=== PATIENT | male | born 1930 | race Caucasian/White ===

== ENCOUNTER 2017-11-26 08:52 | Inpatient (IN) ==
--- NOTE | 2017-11-26 09:45 | Emergency Department Note ---
GI Bleed HPI - General Chief complaint: Rectal Bleed Stated complaint: Rectal bleeding Time Seen by Provider: 11/26/17 09:18 Source: family Mode of arrival: wheelchair Limitations: no limitations - History of Present Illness HPI Narrative: This pleasant 87-year-old patient of [facility] comes in with 2 days of having several episodes of blood in his stools. He actually only had one episode that was fairly large today and yesterday's bowel movement smelled like blood according to his caregiver. He is on aspirin 325 daily; this is only been in this last 1 week since his fistula was "cleaned out" in his right arm.. His stools were described as muddy and jellylike with clots. He has chronic low blood pressures in the morning and dizziness. This morning here was 95/52. He has significant weakness and this has been progressive and ongoing where he cannot stand up anymore by himself. He used to use a walker and then was using a Hover[place] but this was not very helpful. He has been in [facility] for the past 6 months. Physcial therapy was discontinued because he did not think that it was being very helpful at all. REVIEW OF SYSTEMS: General: No fevers or chills or sweats. CV: No chest pains or palpitations. He does have a defibrillator but not pacer. Pulmonary: He describes chronic cough and was seen by a specialist who did not come up with any new conclusions. He denies shortness of breath. He does not use oxygen. GI: No abdominal pain or nausea or vomiting. He had some diarrhea this morning. He has some chronic constipation for which he takes as a laxative and he goes to the bathroom every other day. MSK: He has some chronic back pain. He has a history of severe to moderate scoliosis that affects some of his sitting up and down. Psych: He denies anxiety and depression. - Related Data Home Medications Medication Instructions Recorded Confirmed Allopurinol [Zyloprim] 300 mg PO DAILY 11/26/17 11/26/17 Aspirin [Lite Coat Aspirin] 325 mg PO DAILY 11/26/17 11/26/17 Carvedilol [Coreg] 3.125 mg PO QHS 11/26/17 11/26/17 Cinacalcet HCl [Sensipar] 60 mg PO .EVERY OTHER DAY 11/26/17 11/26/17 Gabapentin [Neurontin] 100 mg PO QHS 11/26/17 11/26/17 Omeprazole [PriLOSEC] 20 mg PO BIDAC 11/26/17 11/26/17 Pramipexole [Mirapex] 0.5 mg PO HS 11/26/17 11/26/17 Vit B Cmplx 3/FA/Vit C/Biotin 1 each PO DAILY 11/26/17 11/26/17 [Vol-Care Rx Tablet] traZODone HCL [Desyrel] 150 mg PO HS 11/26/17 11/26/17 Allergies Allergy/AdvReac Type Severity Reaction Status Date / Time No Known Drug Allergies Allergy Verified 11/26/17 08:57 Past Medical History - Past Medical History Medical history: Reports: hypertension, renal disease (CRF - dialysis.), other ( Defibrillator. Scarlet fever age . Scoliosis. Diverticulitis. No PUD.). Denies: CHF Surgical history ED: Reports: other (defibrillator implanted.) - Social History smoking status: Former smoker Physical Exam Limitations: no limitations General appearance: alert, in no apparent distress Head: atraumatic, normocephalic Eye: Present: EOMI ENT: mucous membranes moist Neck: Present: trachea midline. Absent: lymphadenopathy, thyromegaly Respiratory: Present: normal lung sounds bilaterally. Absent: respiratory distress, wheezes, stridor, accessory muscle use, prolonged expiratory phase Cardiovascular: Present: regular rate, normal rhythm. Absent: systolic murmur, diastolic murmur Abdominal: Present: soft. Absent: distention, tenderness, guarding, rebound, rigidity, organomegaly, mass Back: Absent: CVA tenderness (R), CVA tenderness (L), spinous process tenderness Neurological: Present: alert, oriented X3 Psychiatric: Present: normal affect, normal mood Skin: Present: warm, dry Course Course Narrative: 9:17 AM Appears fairly unremarkable and nontoxic and not in distress nor pale. 2 days of some blood in his stools on just one occasion as visible red blood, and yesterday with smell of blood; with a history of constipation and being on aspirin and chronic renal failure. Will do basic labs and give some IV fluids. 2:25 PM Repeat hemoglobin is 8.3, and 4 hours earlier was 8.9. This is down from a 10.4 that was obtained on 10/29/2017. With him having some hypotension, additional observation, possibly transfusing, dialysis likely needed in the next 24 hr especially if transfused (over-load fluid?), admission seems appropriate and prudent. Case discussed with Dr. Solitario Larson (hospitalist) who kindly accepted the care of this patient. Vital Signs Temperature 97.0 F 11/26/17 08:52 Pulse Rate 78 11/26/17 08:52 Respiratory Rate 12 11/26/17 08:52 Blood Pressure 95/52 11/26/17 08:52 Pulse Oximetry (%) 90 11/26/17 08:52 Temperature 97.2 F 11/27/17 04:00 Pulse Rate 48 L 11/27/17 04:00 Respiratory Rate 20 11/27/17 04:00 Blood Pressure 98/50 11/27/17 00:00 Pulse Oximetry (%) 95 11/27/17 04:00 GI Bleed - Lab Data Result diagrams: 11/26/17 21:05 11/26/17 09:52 Lab Results 11/26/17 11/26/17 11/26/17 Range/Units 09:52 09:52 09:52 WBC 7.3 (4.5-11.0) K/mcL RBC 2.73 L (4.50-5.90) M/mcL Hgb 8.9 L (13.5-16.5) g/dL Hct 27.4 L (41.0-55.0) % MCV 100.2 H (80.0-100.0) fL MCH 32.8 (26.0-34.0) pg MCHC 32.7 (31.0-36.0) g/dL RDW 17.5 H (11.5-14.5) % Plt Count 130 L (140-440) K/mcL MPV 8.6 (7.4-10.4) fL Gran % 82.8 H (38.0-78.0) % Lymph % (Auto) 8.2 L (15.5-49.0) % Brooks % (Auto) 7.7 (1.0-12.0) % Eos % (Auto) 1.0 (0.0-7.0) % Baso % (Auto) 0.3 (0.0-2.0) % Gran # 6.0 (1.8-8.0) K/mcL Lymph # (Auto) 0.6 L (1.5-4.8) K/mcL Brooks # (Auto) 0.6 (0.1-0.9) K/mcL Eos # (Auto) 0.1 (0.0-0.7) K/mcL Baso # (Auto) 0 (0.0-0.3) K/mcL PT 15.2 H (11.9-14.5) sec INR 1.2 H (0.9-1.1) APTT 44 H (20-37) sec Sodium 132 L (133-145) mmol/L Potassium 4.8 (3.3-5.1) mmol/L Chloride 90 L (96-108) mmol/L Carbon Dioxide 31 H (22-30) mmol/L Anion Gap 11.0 (8-16) BUN 53 H (8-23) mg/dl Creatinine 2.9 H (0.7-1.2) mg/dl GFR Calculation 19 Glucose 94 (70-105) mg/dL Calcium 9.3 (8.6-10.4) mg/dl Total Bilirubin 0.6 (0.0-1.0) mg/dL AST 24 (0-37) U/l ALT 19 (0-40) U/l Alkaline Phosphatase 167 H (39-117) U/L Total Protein 6.3 (5.9-8.4) gm/dL Albumin 3.2 (3.2-5.2) gm/dL Globulin 3.1 (2.2-3.7) gm/dL Albumin/Globulin Ratio 1.0 (1.0-2.3) 11/26/17 Range/Units 13:39 WBC 7.3 (4.5-11.0) K/mcL RBC 2.52 L (4.50-5.90) M/mcL Hgb 8.3 L (13.5-16.5) g/dL Hct 25.2 L (41.0-55.0) % MCV 100.1 H (80.0-100.0) fL MCH 33.0 (26.0-34.0) pg MCHC 33.0 (31.0-36.0) g/dL RDW 17.3 H (11.5-14.5) % Plt Count 126 L (140-440) K/mcL MPV 8.5 (7.4-10.4) fL Gran % 79.9 H (38.0-78.0) % Lymph % (Auto) 8.7 L (15.5-49.0) % Brooks % (Auto) 8.3 (1.0-12.0) % Eos % (Auto) 2.9 (0.0-7.0) % Baso % (Auto) 0.2 (0.0-2.0) % Gran # 5.8 (1.8-8.0) K/mcL Lymph # (Auto) 0.6 L (1.5-4.8) K/mcL Brooks # (Auto) 0.6 (0.1-0.9) K/mcL Eos # (Auto) 0.2 (0.0-0.7) K/mcL Baso # (Auto) 0 (0.0-0.3) K/mcL PT (11.9-14.5) sec INR (0.9-1.1) APTT (20-37) sec Sodium (133-145) mmol/L Potassium (3.3-5.1) mmol/L Chloride (96-108) mmol/L Carbon Dioxide (22-30) mmol/L Anion Gap (8-16) BUN (8-23) mg/dl Creatinine (0.7-1.2) mg/dl GFR Calculation Glucose (70-105) mg/dL Calcium (8.6-10.4) mg/dl Total Bilirubin (0.0-1.0) mg/dL AST (0-37) U/l ALT (0-40) U/l Alkaline Phosphatase (39-117) U/L Total Protein (5.9-8.4) gm/dL Albumin (3.2-5.2) gm/dL Globulin (2.2-3.7) gm/dL Albumin/Globulin Ratio (1.0-2.3) Disposition Pt seen by OTOLARYNGOLOGY PHYSICIAN/PA only: No Clinical Impression: Lower gastrointestinal hemorrhage, Hypotension, Bradycardia Disposition: Xfer As Inpt ([facility]) Condition: Fair
[2017-11-26] MEDS ORDERED: 0.9 % SODIUM CHLORIDE 1,000 ML IV ONE (09:55)
[2017-11-26 10:57] LABS: Basophils # (Auto) 0 K/mcL (0.0-0.3); Basophils % (Auto) 0.3 % (0.0-2.0); Eosinophils # (Auto) 0.1 K/mcL (0.0-0.7); Granulocytes % (Auto) 82.8 % (38.0-78.0); Lymphocytes # (Auto) 0.6 K/mcL (1.5-4.8); Lymphocytes % (Auto) 8.2 % (15.5-49.0); Mean Cell Volume 100.2 fL (80.0-100.0); Mean Corpuscular HGB Conc 32.7 g/dL (31.0-36.0); Mean Corpuscular Hemoglobin 32.8 pg (26.0-34.0); Monocytes # (Auto) 0.6 K/mcL (0.1-0.9); Monocytes % (Auto) 7.7 % (1.0-12.0); Platelet Count 130 K/mcL (140-440); RBC 2.73 M/mcL (4.50-5.90); Red Cell Distribution Width 17.5 % (11.5-14.5)
[2017-11-26 11:14] LABS: ALT/SGPT 19 U/l (0-40); Albumin 3.2 gm/dL (3.2-5.2); Alkaline Phosphatase 167 U/L (39-117); Blood Urea Nitrogen 53 mg/dl (8-23)
[2017-11-26 14:09] LABS: Basophils # (Auto) 0 K/mcL (0.0-0.3); Basophils % (Auto) 0.2 % (0.0-2.0); Eosinophils # (Auto) 0.2 K/mcL (0.0-0.7); Eosinophils % (Auto) 2.9 % (0.0-7.0); Granulocytes % (Auto) 79.9 % (38.0-78.0); Lymphocytes # (Auto) 0.6 K/mcL (1.5-4.8); Lymphocytes % (Auto) 8.7 % (15.5-49.0); Mean Cell Volume 100.1 fL (80.0-100.0); Monocytes # (Auto) 0.6 K/mcL (0.1-0.9); Monocytes % (Auto) 8.3 % (1.0-12.0); Platelet Count 126 K/mcL (140-440); RBC 2.52 M/mcL (4.50-5.90); Red Cell Distribution Width 17.3 % (11.5-14.5)
[2017-11-26] MEDS ORDERED: PANTOPRAZOLE 40 MG VIAL IV ONE (17:13)
[2017-11-26] MEDS ORDERED: ONDANSETRON 4 MG/2 ML VIAL IV PRN (17:13)
[2017-11-26] MEDS ORDERED: ACETAMINOPHEN 325 MG TABLET PO PRN (17:13)
--- NOTE | 2017-11-26 20:50 | Internal Med History&Physical ---
Medical - H&P: HPI Patient information: Note initiated : 11/26/17 at 8:50 pm Service Date, if different from initiated Date: [] Patient: Malvin Esquivel 87 y/o M admitted on 11/26/17 for Rectal bleeding. Chief Complaint: bloody stools History of present illness: The patient's pleasant 87-year-old male with history of end-stage renal disease on dialysis Fridays, hypertension, atrial and presumptive ventricular arrhythmias with AICD in place, atrial fibrillation, epistaxis while on anticoagulants or presents with bright red blood per rectum. Patient had intravascular procedure on his fistula last week. Subsequent to that he was started on an aspirin. That was done by Dr. Jacinto at [facility]. Patient did well until yesterday, when his stool smelled "bloody". It was dark , more so than usual. This morning the patient had blood in his stool passing blood and clots into the commode. Is no prior history of GI hemorrhage. He presented the emergency department, was hemoglobin was found to have decreased from 10.4-8.9. (10.4 was on October 27). He received fluids, was hemodynamically stable, recheck of hemoglobin is 8.3. Subsequently he had another frankly bloody bowel movement filling the had approximately an inch and a half with blood. Patient has chronic lightheadedness in the morning when he gets up, he does not think that's changed. He has a chronic cough which is unchanged. He denies any chest pain/tightness/squeezing. He has had no dyspnea. She had no nausea or vomiting, no hematemesis. He's had no fevers or chills. No vision changes, no headache, no strokelike symptoms. Aspirin is the only new medicine, he does not take nonsteroidals otherwise. In discussing the case with Dr. Titus, apparently the patient has had significant amounts of epistaxis in the past while on anticoagulants for A. fib or antiplatelet agents. For that reason he no longer is on any of the above. Patient says his last colonoscopy was about 5 years ago by his recall. He thinks it was done at the [facility] in [place]. He carries a diagnosis of diverticulosis. Denies any prior lower gastrointestinal hemorrhage. States any issues he had with diverticulosis October resolved when he started using Metamucil. Patient's being admitted for acute lower gastrointestinal hemorrhage. All systems: reviewed and no additional remarkable complaints except as stated Medical - H&P: PMH Medical history: End-stage renal disease on hemodialysis Wednesdays and Fridays for about the last 3 years Hypertension AICD/pacemaker (pacing spikes noted on telemetry) Diverticulosis Atrial fibrillation History of epistaxis Surgical history: AICD placement Pertinent family history: No significant history of gastrointestinal illness Social history: The patient's former smoker. He does not drink alcohol. Medical - H&P: Meds Home Medications Medication Instructions Recorded Confirmed Type Allopurinol [Zyloprim] 300 mg PO DAILY 11/26/17 11/26/17 History Aspirin [Lite Coat Aspirin] 325 mg PO DAILY 11/26/17 11/26/17 History Carvedilol [Coreg] 3.125 mg PO QHS 11/26/17 11/26/17 History Cinacalcet HCl [Sensipar] 60 mg PO .EVERY OTHER DAY 11/26/17 11/26/17 History Gabapentin [Neurontin] 100 mg PO QHS 11/26/17 11/26/17 History Omeprazole [PriLOSEC] 20 mg PO BIDAC 11/26/17 11/26/17 History Pramipexole [Mirapex] 0.5 mg PO HS 11/26/17 11/26/17 History Vit B Cmplx 3/FA/Vit C/Biotin 1 each PO DAILY 11/26/17 11/26/17 History [Vol-Care Rx Tablet] traZODone HCL [Desyrel] 150 mg PO HS 11/26/17 11/26/17 History Allergies Allergy/AdvReac Type Severity Reaction Status Date / Time No Known Drug Allergies Allergy Verified 11/26/17 08:57 Medical - H&P: Exam - Constitutional Vitals: Temp Pulse Resp BP Pulse Ox 97.0 F 59 L 21 112/61 100 11/26/17 17:20 11/26/17 17:20 11/26/17 17:20 11/26/17 17:20 11/26/17 17:20 Exam: General: Alert, in no acute distress, appears his stated age HEENT: Normocephalic. Pupils are equally round and reactive to light. Sclera are anicteric. No conjunctival injection. Oropharynx is with moist mucous membranes, no lip or gum lesions. Tongue is midline. Neck: Supple, no meningismus. No thyromegaly. Chest: Clear to auscultation bilaterally with no rales or wheezes. No accessory muscle use. Cardiovascular: Irregularly irregular with a murmur across the precordium. No gallop or rub. Carotid pulses are 2+ without bruit. There is no lower extremity edema. JVP is normal. Abdomen: Soft, nontender without guarding or rebound. Active, normal bowel sounds. No hepatosplenomegaly. Skin: Warm, dry. No rash. Skin turgor is decreased Musculoskeletal: No joint erythema or tenderness. Normal range of motion in the upper and lower extremities. Strength 5/5 in upper and lower extremities. Digits without cyanosis or clubbing. Neuro: Alert, oriented X3. Cranial nerves II through XII grossly intact. Sensation intact to light touch. DTR 2+ in the upper and lower extremity. Psychiatric: Affect and orientation are normal. Good insight. Medical - H&P: Reslt - Labs CBC & Chem 7: 11/26/17 21:05 11/26/17 09:52 Labs: Short CBC 11/26/17 11/26/17 11/26/17 Range/Units 09:52 13:39 17:20 WBC 7.3 7.3 (4.5-11.0) K/mcL Hgb 8.9 L 8.3 L 8.3 L (13.5-16.5) g/dL Hct 27.4 L 25.2 L 25.4 L (41.0-55.0) % Plt Count 130 L 126 L (140-440) K/mcL [facility] 11/26/17 09:52 Sodium 132 L Potassium 4.8 Chloride 90 L Carbon Dioxide 31 H BUN 53 H Creatinine 2.9 H Glucose 94 Calcium 9.3 Liver Function 11/26/17 Range/Units 09:52 Total Bilirubin 0.6 (0.0-1.0) mg/dL AST 24 (0-37) U/l ALT 19 (0-40) U/l Alkaline Phosphatase 167 H (39-117) U/L Albumin 3.2 (3.2-5.2) gm/dL - EKG Data -: EKG Reviewed by Myself (atrial fibrillation and a rate of 56 with no acute injury) Medical - H&P: A/P (1) Lower gastrointestinal hemorrhage Current visit: Yes Status: Acute (2) Anemia associated with acute blood loss Current visit: Yes Status: Acute (3) End stage renal disease Current visit: Yes Status: Chronic (4) Atrial fibrillation with slow ventricular response Current visit: Yes Status: Chronic - Narrative A/P Narrative: 87-year-old male with end-stage renal disease on dialysis with a history of epistaxis to anticoagulants and antiplatelet agents presents with lower gastrointestinal hemorrhage. Lower GI bleed. Acute with acute blood loss anemia. After arriving on the floor, he had further blood loss and drop in his hemoglobin. Given his history of epistaxis on antiplatelet and anticoagulant agents, concern for possible AVM source of bleeding. Diverticular bleed remains a possibility too, less likely tumor if he had an unremarkable colonoscopy 5 years ago. Recent aspirin use could have contributed. He remains hemodynamically stable. Plan: Inpatient admission to telemetry Trend hemoglobin Type and cross, hold for units Transfuse for ongoing hemorrhage GI consultation, discussed with Dr. Caro If ongoing hemorrhage, may need prep as able to investigate source If bleeding is self-limited, will need a full prep and endoscopy. End-stage renal disease. At risk for volume overload if her recent heaves multiple units of packed red cells. Currently no evidence of volume overload. He normally would've gotten dialysis today, missed that secondary to GI hemorrhage. Discussed with Dr. Titus, who will arrange dialysis for tomorrow. Plan: Hemodialysis tomorrow. Atrial fibrillation with slow ventricular response. Patient has AICD, denies pacemaker that, though pacemaker spikes are visible on telemetry. He does mount a brisker response at times. Plan: Continue to monitor on telemetry. Avoid antiplatelet and anticoagulant agents Acute blood loss anemia secondary to acute GI hemorrhage. Plan: As above Prophylaxis: SCDs. Pharmacologic prophylaxis is contraindicated due to acute gastrointestinal hemorrhage. CODE STATUS, discussed with the patient. He is full code. Medical - H&P: Qual - VTE Deep Vein Thrombosis/Pulmonary Embolism Present on Admission: No
[2017-11-26] MEDS ORDERED: 0.9 % SODIUM CHLORIDE 250 ML IV SCH (22:00)
[2017-11-26] MEDS: PRAMIPEXOLE 0.25 MG TABLET PO SCH (23:41)
[2017-11-27] MEDS ORDERED: PEG 3350/NA SULF,BICARB,CL/KCL 4,000 ML ORAL.SOL PO ONE (05:42)
[2017-11-27] MEDS: PANTOPRAZOLE 40 MG VIAL IV SCH (08:45)
[2017-11-27] MEDS: ALLOPURINOL 300 MG TABLET PO SCH (08:57)
--- NOTE | 2017-11-27 09:36 | Internal Med Progress Note ---
Medical - PN: Subj Patient information: Note initiated : 11/27/17 at 9:28 am Service Date, if different from initiated Date: [] Patient: Malvin Esquivel 87 y/o M admitted on 11/26/17 for Rectal bleeding. Chief Complaint: f/u GI bleed Interval history: 2/2-patient presents after bloody stools at home, in the setting of recently started aspirin or dialysis fistula interventional procedure. Was hemodynamically stable in the ED, subsequently had bloody bowel movement the ED. Admitted for further evaluation. 2/3-last evening had further bloody bowel movement on the bedpan. Received 2 units of packed cells overnight. Tolerated that well, no dyspnea. Follow-up labs are pending. Now taking bowel prep. - Constitutional Vitals: Vital Signs Temp Pulse Resp BP Pulse Ox 97.2 F 48 L 20 98/50 95 11/27/17 04:00 11/27/17 04:00 11/27/17 04:00 11/27/17 00:00 11/27/17 04:00 Period Temp Pulse Resp BP Sys/Tolbert Pulse Ox Last 24 Hr 97.0 F-98.2 F 47-65 16-21 96-129/44-72 95-100 Intake and Output 11/26/17 11/27/17 11/27/17 21:59 05:59 13:59 Intake Total 325 / 325 Output Total 600 / 600 Balance -275 / -275 Weight 148 lb 8 oz Intake & Output: Intake & Output 11/26/17 11/27/17 11/27/17 21:59 05:59 13:59 Intake Total 325 / 325 Output Total 600 / 600 Balance -275 / -275 Weight 148 lb 8 oz Intake: Blood Product 325 / 325 Output: Urine/Stool Mix 600 / 600 Exam: General: Laying in bed, comfortable Cardiovascular: Irregular regular, unchanged precordial murmur. Trace lower extremity edema. Chest: Clear, no rales Abdomen: Soft, active bowel sounds, nontender Neuro: Alert, oriented, generalized weakness. Medical - PN: Obj Da - Labs CBC & Chem 7: 11/26/17 21:05 11/26/17 09:52 Labs: Abnormal Lab Results 11/26/17 11/26/17 11/26/17 21:05 17:20 13:39 RBC 2.52 L Hgb 7.5 L 8.3 L 8.3 L Hct 22.3 L 25.4 L 25.2 L MCV 100.1 H RDW 17.3 H Plt Count 126 L Gran % 79.9 H Lymph % (Auto) 8.7 L Lymph # (Auto) 0.6 L PT INR APTT Sodium Chloride Carbon Dioxide BUN Creatinine Alkaline Phosphatase 11/26/17 11/26/17 11/26/17 09:52 09:52 09:52 RBC 2.73 L Hgb 8.9 L Hct 27.4 L MCV 100.2 H RDW 17.5 H Plt Count 130 L Gran % 82.8 H Lymph % (Auto) 8.2 L Lymph # (Auto) 0.6 L PT 15.2 H INR 1.2 H APTT 44 H Sodium 132 L Chloride 90 L Carbon Dioxide 31 H BUN 53 H Creatinine 2.9 H Alkaline Phosphatase 167 H post transfusion laboratories are pending. Meds: Medications Acetaminophen (Tylenol) 650 mg PO Q6HP PRN PRN Reason: PAIN/FEVER > 101 Allopurinol (Zylopriim) 300 mg PO DAILY [facility] Last Admin: 11/27/17 08:57 Dose: 300 mg Carvedilol (Coreg) 3.125 mg PO QHS [facility] Gabapentin (Neurontin) 100 mg PO QHS [facility] Sodium Chloride (Sodium Chloride 0.9%) 250 mls @ 20 mls/hr IV .[id number] [facility] Stop: 11/27/17 10:29 Last Admin: 11/27/17 02:11 Dose: 20 mls/hr Sodium Chloride (Sodium Chloride 0.9%) 250 mls @ 20 mls/hr IV .[id number] [facility] Vasopressin 20 unit/ Dextrose 100 mls @ 12 mls/hr IV Q8H [facility]; 0.04 UNIT/MIN PRN Reason: Protocol Ondansetron HCl (Zofran) 4 mg IV Q4HP PRN PRN Reason: Nausea And Vomiting Pantoprazole [facility] Last Admin: 11/27/17 08:45 Dose: 40 mg Pramipexole Dihydrochloride (Mirapex) 0.5 mg PO [facility] Last Admin: 11/26/17 23:41 Dose: Not Given Trazodone HCl (Desyrel) 150 mg PO [facility] Medical - PN: A/P - Time Spent With Patient Total time spent is greater than 50% in coordination of care (as documented) at patient's floor/unit and/or counseling patient: (1) Lower gastrointestinal hemorrhage Status: Acute Current Visit: Yes (2) Anemia associated with acute blood loss Status: Acute Current Visit: Yes (3) End stage renal disease Status: Chronic Current Visit: Yes (4) Atrial fibrillation with slow ventricular response Status: Chronic Current Visit: Yes - Narrative A/P Narrative: 87-year-old male with end-stage renal disease on dialysis with a history of epistaxis to anticoagulants and antiplatelet agents presents with lower gastrointestinal hemorrhage. Lower GI bleed. Acute with acute blood loss anemia. Further bloody BM last evening, now s/p 2 units PRBC. Taking bowel prep, to go to endo suite this afternoon. Concern for possible AVM source of bleeding. Diverticular bleed remains a possibility too, less likely tumor if he had an unremarkable colonoscopy 5 years ago. Recent aspirin use could have contributed. Hemodynamics are stable. Plan: Continue to trend Hb, transfuse PRN, GI Consult-->prepping for endo. End-stage renal disease. Tolerated 2 units PRBC without volume overload. Missed HD Wednesday, Dr. Titus consulted for inpatient HD. Plan: Hemodialysis per nephro. Atrial fibrillation with slow ventricular response. Stable. Patient has AICD with back up pacing noted on telemetry. Plan: Continue to monitor on telemetry. Avoid antiplatelet and anticoagulant agents Acute blood loss anemia secondary to acute GI hemorrhage. Plan: As above Medical - PN: Qual - VTE Deep Vein Thrombosis/Pulmonary Embolism Present on Admission: No
[2017-11-27 10:40] LABS: Basophils # (Auto) 0 K/mcL (0.0-0.3); Basophils % (Auto) 0.6 % (0.0-2.0); Eosinophils # (Auto) 0.2 K/mcL (0.0-0.7); Eosinophils % (Auto) 3.4 % (0.0-7.0); Lymphocytes # (Auto) 0.7 K/mcL (1.5-4.8); Mean Cell Volume 96.4 fL (80.0-100.0); Mean Corpuscular HGB Conc 33.4 g/dL (31.0-36.0); Mean Corpuscular Hemoglobin 32.2 pg (26.0-34.0); Monocytes # (Auto) 0.5 K/mcL (0.1-0.9); Platelet Count 115 K/mcL (140-440); RBC 2.89 M/mcL (4.50-5.90); Red Cell Distribution Width 17.8 % (11.5-14.5)
[2017-11-27 11:08] LABS: ALT/SGPT 18 U/l (0-40); Albumin 3.2 gm/dL (3.2-5.2); Albumin/Globulin Ratio 1.1 (1.0-2.3); Alkaline Phosphatase 159 U/L (39-117); Bilirubin,Direct 0.4 mg/dL (0.0-0.3); Blood Urea Nitrogen 76 mg/dl (8-23); Gamma Glutamyl Transpeptidase 57 U/L (8-61); Uric Acid 3.3 mg/dL (2.5-8.0)
[2017-11-27] MEDS ORDERED: MIDAZOLAM 2 MG/2 ML VIAL IV SCH (14:30)
[2017-11-27] MEDS ORDERED: PROPOFOL 200 MG/20 ML VIAL IV SCH (14:30)
[2017-11-27] MEDS ORDERED: PROPOFOL 0 ML IV ONE (14:40)
[2017-11-27] MEDS ORDERED: PROPOFOL 20 ML IV ONE (14:40)
[2017-11-27] MEDS ORDERED: MIDAZOLAM 2 MG/2 ML VIAL ONE (14:40)
[2017-11-27] MEDS: 0.9 % SODIUM CHLORIDE 250 ML IV SCH ×2 (15:20→21:31)
[2017-11-27] MEDS: VASOPRESSIN 20 UNIT in DEXTROSE 5% IN WATER 99 ML IV SCH ×2 (15:20→17:24)
[2017-11-27] MEDS ORDERED: EPINEPHrine 1 MG/ML AMPUL IJ ONE (15:40)
[2017-11-27] MEDS ORDERED: ETHANOLAMINE OLEATE 5% 2 ML AMP IJ ONE (15:41)
[2017-11-27] MEDS: CARVEDILOL 3.125 MG TABLET PO SCH (21:26)
[2017-11-27] MEDS: GABAPENTIN 100 MG CAPSULE PO SCH (21:32)
[2017-11-27] MEDS: traZODone HCL 150 MG TABLET PO SCH (21:32)
[2017-11-27] MEDS: PRAMIPEXOLE 0.25 MG TABLET PO SCH (21:32)
[2017-11-28] MEDS: VASOPRESSIN 20 UNIT in DEXTROSE 5% IN WATER 99 ML IV SCH (03:11)
[2017-11-28] MEDS: PANTOPRAZOLE 40 MG VIAL IV SCH (06:50)
[2017-11-28 07:10] LABS: ALT/SGPT 20 U/l (0-40); Albumin 3.1 gm/dL (3.2-5.2); Albumin/Globulin Ratio 1.1 (1.0-2.3); Alkaline Phosphatase 165 U/L (39-117); Bilirubin,Direct 0.3 mg/dL (0.0-0.3); Blood Urea Nitrogen 28 mg/dl (8-23); Gamma Glutamyl Transpeptidase 58 U/L (8-61); Uric Acid 2.1 mg/dL (2.5-8.0)
[2017-11-28] MEDS ORDERED: VASOPRESSIN 20 UNIT in DEXTROSE 5% IN WATER 99 ML IV PRN (07:30)
[2017-11-28] MEDS: ALLOPURINOL 300 MG TABLET PO SCH (08:38)
[2017-11-28] MEDS: 0.9 % SODIUM CHLORIDE 250 ML IV SCH ×2 (12:06→23:47)
--- NOTE | 2017-11-28 17:44 | Nephrology Progress Note ---
Subjective Patient information: Note initiated : 11/28/17 at 5:42 pm Service Date, if different from initiated Date: [] Patient: Malvin Esquivel 87 y/o M admitted on 11/26/17 for Rectal bleeding. Chief Complaint: Lower GI bleed Objective - Vital Signs Vital signs: Vital Signs Temp Pulse Pulse Resp BP BP Pulse Ox 11/28/17 16:00 99.4 F H 80 16 125/62 94 11/28/17 11:58 99.0 F H 18 100/52 95 11/28/17 06:25 99.0 F H 20 107/74 93 11/28/17 04:00 97.2 F 67 18 95 11/28/17 00:00 97.2 F 60 18 94/56 96 11/27/17 20:10 98.6 F 80 113/66 11/27/17 20:00 95 11/27/17 19:54 93 H 126/82 11/27/17 19:39 81 119/65 11/27/17 19:16 81 117/68 11/27/17 18:50 59 L 116/66 11/27/17 18:39 76 102/60 11/27/17 17:49 80 120/65 Intake and Output 11/28/17 11/28/17 11/28/17 05:59 13:59 21:59 Intake Total 1020 / 1020 300 / 300 Output Total 200 / 200 Balance -200 / -200 1020 / 1020 300 / 300 Intake: Oral 1020 / 1020 300 / 300 Output: Void Amount 0 / 0 Stool 200 / 200 Other: Meal Breakfast Lunch Percent of Meal Consumed 100% 100% Feeding Ability Independent Independent # Bowel Movements 1 Intake & Output: Intake & Output 11/28/17 11/28/17 11/28/17 05:59 13:59 21:59 Intake Total 1020 / 1020 300 / 300 Output Total 200 / 200 Balance -200 / -200 1020 / 1020 300 / 300 Intake: Oral 1020 / 1020 300 / 300 Output: Void Amount 0 / 0 Stool 200 / 200 Other: Meal Breakfast Lunch Percent of Meal Consumed 100% 100% Feeding Ability Independent Independent # Bowel Movements 1 - General Appearance General appearance: appears started age, cachectic EENT: ATNC Neck: no JVD Respiratory: no kyphosis Cardiology: mid-systolic murmur Gastrointestinal: normoactive bowel sounds Neurologic: no focal deficit - Lab 11/28/17 03:50 11/28/17 03:28 Most recent lab results Calcium 8.8 mg/dl (8.6-10.4) 11/28/17 03:28 Phosphorus 2.7 mg/dL (2.7-4.5) 11/28/17 03:28 Magnesium 1.9 mg/dL (1.6-2.5) 11/28/17 03:28 Assessment and Plan (1) End stage renal disease Status: Chronic Comment: Had dialysis yesterday without any problems without heparin. GI bleed, no new episodes.
--- NOTE | 2017-11-28 18:28 | Internal Med Progress Note ---
Medical - PN: Subj Patient information: Note initiated : 11/28/17 at 6:25 pm Service Date, if different from initiated Date: [] Patient: Malvin Esquivel 87 y/o M admitted on 11/26/17 for Rectal bleeding. Chief Complaint: f/u GI Bleed Interval history: 2/-patient presents after bloody stools at home, in the setting of recently started aspirin or dialysis fistula interventional procedure. Was hemodynamically stable in the ED, subsequently had bloody bowel movement the ED. Admitted for further evaluation. 3-last evening had further bloody bowel movement on the bedpan. Received 2 units of packed cells overnight. Tolerated that well, no dyspnea. Follow-up labs are pending. Now taking bowel prep. 11/28-underwent colonoscopy yesterday, tolerated procedure well. All diverticula , none with fresh blood. 4-5 mm polyp was snared. AVM in the cecum was not bleeding, was ablated. Patient feels well this morning. Tolerating diet. Received dialysis yesterday evening without problems. Should be stable for discharge tomorrow if no further bloody bowel movements. - Constitutional Vitals: Vital Signs Temp Pulse Resp BP Pulse Ox 99.4 F H 80 16 125/62 94 11/28/17 16:00 11/28/17 16:00 11/28/17 16:00 11/28/17 16:00 11/28/17 16:00 Period Temp Pulse Resp BP Sys/Tolbert Pulse Ox Last 24 Hr 97.2 F-99.4 F 59-93 16-20 94-126/52-82 93-96 Intake and Output 11/28/17 11/28/17 11/28/17 05:59 13:59 21:59 Intake Total 1020 / 1020 300 / 300 Output Total 200 / 200 Balance -200 / -200 1020 / 1020 300 / 300 Intake & Output: Intake & Output 11/28/17 11/28/17 11/28/17 05:59 13:59 21:59 Intake Total 1020 / 1020 300 / 300 Output Total 200 / 200 Balance -200 / -200 1020 / 1020 300 / 300 Intake: Oral 1020 / 1020 300 / 300 Output: Void Amount 0 / 0 Stool 200 / 200 Other: Meal Breakfast Lunch Percent of Meal Consumed 100% 100% Feeding Ability Independent Independent # Bowel Movements 1 Exam: General: Sitting up in bed, eating breakfast, no distress Chest: Clear, no rales Current vascular: Bradycardia, irregularly irregular, no edema Abdomen: Soft, nontender Neuro: Alert, oriented, generally weak. Medical - PN: Obj Da - Labs CBC & Chem 7: 11/28/17 03:50 11/28/17 03:28 Labs: Abnormal Lab Results 11/28/17 11/28/17 11/28/17 03:50 03:28 03:28 RBC Hgb 9.4 L Hct 28.4 L MCV RDW Plt Count Gran % Lymph % (Auto) Lymph # (Auto) PT INR APTT Sodium Potassium Chloride Carbon Dioxide BUN 28 H Creatinine 2.0 H Glucose 66 L Uric Acid 2.1 L Direct Bilirubin Alkaline Phosphatase 165 H Albumin 3.1 L 11/27/17 11/27/17 11/27/17 13:17 10:15 10:15 RBC 2.89 L Hgb 9.6 L 9.3 L Hct 28.0 L 27.9 L MCV RDW 17.8 H Plt Count 115 L Gran % Lymph % (Auto) 13.0 L Lymph # (Auto) 0.7 L PT INR APTT Sodium Potassium 5.5 H Chloride 91 L Carbon Dioxide BUN 76 H Creatinine 3.1 H Glucose Uric Acid Direct Bilirubin 0.4 H Alkaline Phosphatase 159 H Albumin 11/26/17 11/26/17 11/26/17 21:05 17:20 13:39 RBC 2.52 L Hgb 7.5 L 8.3 L 8.3 L Hct 22.3 L 25.4 L 25.2 L MCV 100.1 H RDW 17.3 H Plt Count 126 L Gran % 79.9 H Lymph % (Auto) 8.7 L Lymph # (Auto) 0.6 L PT INR APTT Sodium Potassium Chloride Carbon Dioxide BUN Creatinine Glucose Uric Acid Direct Bilirubin Alkaline Phosphatase Albumin 11/26/17 11/26/17 11/26/17 09:52 09:52 09:52 RBC 2.73 L Hgb 8.9 L Hct 27.4 L MCV 100.2 H RDW 17.5 H Plt Count 130 L Gran % 82.8 H Lymph % (Auto) 8.2 L Lymph # (Auto) 0.6 L PT 15.2 H INR 1.2 H APTT 44 H Sodium 132 L Potassium Chloride 90 L Carbon Dioxide 31 H BUN 53 H Creatinine 2.9 H Glucose Uric Acid Direct Bilirubin Alkaline Phosphatase 167 H Albumin Meds: Medications Acetaminophen (Tylenol) 650 mg PO Q6HP PRN PRN Reason: PAIN/FEVER > 101 Allopurinol (Zylopriim) 300 mg PO DAILY [facility] Last Admin: 11/28/17 08:38 Dose: 300 mg Carvedilol (Coreg) 3.125 mg PO QHS [facility] Last Admin: 11/27/17 21:26 Dose: Not Given Gabapentin (Neurontin) 100 mg PO QHS [facility] Last Admin: 11/27/17 21:32 Dose: 100 mg Sodium Chloride (Sodium Chloride 0.9%) 250 mls @ 20 mls/hr IV .[id number] [facility] Last Admin: 11/28/17 12:06 Dose: Not Given Vasopressin 20 unit/ Dextrose 100 mls @ 12 mls/hr IV Q8HP PRN; Protocol; 0.04 UNIT/MIN PRN Reason: keep SBP > 100 during dialysis Ondansetron HCl (Zofran) 4 mg IV Q4HP PRN PRN Reason: Nausea And Vomiting Pantoprazole Sodium (Protonix) 40 mg IV QAMAC [facility] Last Admin: 11/28/17 06:50 Dose: 40 mg Pramipexole Dihydrochloride (Mirapex) 0.5 mg PO [facility] Last Admin: 11/27/17 21:32 Dose: 0.5 mg Trazodone HCl (Desyrel) 150 mg PO [facility] Last Admin: 11/27/17 21:32 Dose: 150 mg Medical - PN: A/P - Time Spent With Patient Total time spent is greater than 50% in coordination of care (as documented) at patient's floor/unit and/or counseling patient: Greater than 35 minutes (1) Lower gastrointestinal hemorrhage Status: Acute Current Visit: Yes (2) Anemia associated with acute blood loss Status: Acute Current Visit: Yes (3) End stage renal disease Problem details: Had dialysis yesterday without any problems without heparin. GI bleed, no new episodes. Status: Chronic Current Visit: Yes (4) Atrial fibrillation with slow ventricular response Status: Chronic Current Visit: Yes - Narrative A/P Narrative: 87-year-old male with end-stage renal disease on dialysis with a history of epistaxis to anticoagulants and antiplatelet agents presents with lower gastrointestinal hemorrhage. Lower GI bleed. Acute with acute blood loss anemia. Possibly from diverticula , though no fresh blood in tics noted on colo. No further bloody BM''s after proceudre, Hb stable overnight. Will need to avoid antiplatelet and anticoagulant agents. Plan: Monitor overnight, follow Hb, likely home tomorrow. End-stage renal disease. S/P dialysis yesterday. Next due tomorrow, likely can get after discharge. Dr. Titus consulted for inpatient HD. Plan: Hemodialysis per nephro. Atrial fibrillation with slow ventricular response. Stable. Patient has AICD with back up pacing noted on telemetry. Plan: Continue to monitor on telemetry. Avoid antiplatelet and anticoagulant agents Acute blood loss anemia secondary to acute GI hemorrhage. Plan: As above Medical - PN: Qual - VTE Deep Vein Thrombosis/Pulmonary Embolism Present on Admission: No
[2017-11-28] MEDS: PRAMIPEXOLE 0.25 MG TABLET PO SCH (20:30)
[2017-11-28] MEDS: CARVEDILOL 3.125 MG TABLET PO SCH (20:30)
[2017-11-28] MEDS: traZODone HCL 150 MG TABLET PO SCH (20:30)
[2017-11-28] MEDS: GABAPENTIN 100 MG CAPSULE PO SCH (20:32)
[2017-11-29 05:29] LABS: Basophils # (Auto) 0 K/mcL (0.0-0.3); Basophils % (Auto) 0.3 % (0.0-2.0); Eosinophils # (Auto) 0.1 K/mcL (0.0-0.7); Eosinophils % (Auto) 1.6 % (0.0-7.0); Lymphocytes # (Auto) 0.5 K/mcL (1.5-4.8); Lymphocytes % (Auto) 9.3 % (15.5-49.0); Mean Corpuscular HGB Conc 33.1 g/dL (31.0-36.0); Mean Corpuscular Hemoglobin 32.1 pg (26.0-34.0); Monocytes # (Auto) 0.6 K/mcL (0.1-0.9); Monocytes % (Auto) 9.8 % (1.0-12.0); Platelet Count 110 K/mcL (140-440); RBC 2.71 M/mcL (4.50-5.90); Red Cell Distribution Width 17.9 % (11.5-14.5)
[2017-11-29 05:56] LABS: ALT/SGPT 18 U/l (0-40); Alkaline Phosphatase 163 U/L (39-117); Bilirubin,Direct 0.2 mg/dL (0.0-0.3); Blood Urea Nitrogen 37 mg/dl (8-23); Gamma Glutamyl Transpeptidase 57 U/L (8-61); Uric Acid 3.1 mg/dL (2.5-8.0)
[2017-11-29] MEDS: PANTOPRAZOLE 40 MG VIAL IV SCH (07:13)
--- NOTE | 2017-11-29 08:19 | Discharge Summary ---
Medical - DS: Prov Patient information: Note initiated : 11/29/17 at 8:16 am Service Date, if different from initiated Date: [] Patient: Malvin Esquivel 87 y/o M admitted on 11/26/17 for Rectal bleeding. Date of admission: 11/26/17 17:10 Discharge date: 11/29/17 Primary care physician: Junito Titus Admitting clinician: Rossy Ayala Consults: 11/26/17 14:42 Consult to Physician [CONS] Stat Comment: Consulting Provider: Rossy Ayala Reason For Exam: Physician to Consult 11/26/17 17:13 Consult to Physician [CONS] Routine Comment: Consulting Provider: Junito Titus Reason For Exam: Physician to Consult 11/26/17 17:58 Consult to Physician [CONS] Routine Comment: Consulting Provider: Rony Caro Reason For Exam: Physician to Consult Discharging clinician: Rossy Ayala Medical - DS: Meds - Discharge Medications Prescriptions: Psyllium Husk/Aspartame [Metamucil Fiber Singles Packet] 3.4 gm PO DAILY #30 powd.pack Sennosides [Senna] 8.6 mg PO HS #30 tab Active and Home Medications: Home Medications Allopurinol [Zyloprim] 300 mg PO DAILY 11/26/17 [History Confirmed 11/26/17 Last Taken 11/26/17 08:00] Carvedilol [Coreg] 3.125 mg PO QHS 11/26/17 [History Confirmed 11/26/17 Last Taken 11/25/17 20:00] Cinacalcet HCl [Sensipar] 60 mg PO .EVERY OTHER DAY 11/26/17 [History Confirmed 11/26/17 Last Taken Unknown] Gabapentin [Neurontin] 100 mg PO QHS 11/26/17 [History Confirmed 11/26/17 Last Taken 11/25/17 20:00] Omeprazole [Prilosec] 20 mg PO BIDAC 11/26/17 [History Confirmed 11/26/17 Last Taken 11/26/17 08:00] Pramipexole [Mirapex] 0.5 mg PO HS 11/26/17 [History Confirmed 11/26/17 Last Taken 11/25/17 20:00] Vit B Cmplx 3/FA/Vit C/Biotin [Vol-Care Rx Tablet] 1 each PO DAILY 11/26/17 [ History Confirmed 11/26/17 Last Taken 11/26/17 08:00] traZODone HCL [Desyrel] 150 mg PO HS 11/26/17 [History Confirmed 11/26/17 Last Taken Unknown] Psyllium Husk/Aspartame [Metamucil Fiber Singles Packet] 3.4 gm PO DAILY #30 powd.pack 11/29/17 [Rx Last Taken Unknown] Sennosides [Senna] 8.6 mg PO HS #30 tab 11/29/17 [Rx Last Taken Unknown] Medical - DS: Hosp Hospital course: 11/26-patient presents after bloody stools at home, in the setting of recently started aspirin or dialysis fistula interventional procedure. Was hemodynamically stable in the ED, subsequently had bloody bowel movement the ED. Admitted for further evaluation. 11/27-last evening had further bloody bowel movement on the bedpan. Received 2 units of packed cells overnight. Tolerated that well, no dyspnea. Follow-up labs are pending. Now taking bowel prep. 11/28-underwent colonoscopy yesterday, tolerated procedure well. All diverticula , none with fresh blood. 4-5 mm polyp was snared. AVM in the cecum was not bleeding, was ablated. Patient feels well this morning. Tolerating diet. Received dialysis yesterday evening without problems. Should be stable for discharge tomorrow if no further bloody bowel movements. 11/29-did well overnight, no further bowel movements. He relates that he does strain to pass stool at times. Does use Metamucil in the past. Have prescribed that as well as senna for him at the time of discharge. In summary: 87-year-old male with a history of epistaxis with anticoagulants and antiplatelet agents, presents with lower GI bleed after starting aspirin. Colonoscopy revealed multiple diverticula, though no fresh blood. There is also an AVM in the cecum that was ablated. Patient tolerated the procedure well , had no further bloody bowel movements after the procedure and his hemoglobin was stable. He will be discharged to outpatient dialysis, then to return to his living facility. Discharge diagnosis: Lower GI bleed, likely diverticular source Secondary discharge diagnosis: End stage renal disease - Time Spent with Patient Total time spent providing and/or coordinating discharge services: Less than 30 minutes Medical - DS: Exam - Constitutional Vitals: Vital Signs Temp Pulse Resp BP Pulse Ox 11/29/17 07:32 98 11/29/17 03:49 98.0 F 64 18 118/66 94 11/29/17 00:00 98.4 F 74 16 126/78 96 11/28/17 19:12 98.0 F 82 18 117/60 94 11/28/17 16:00 99.4 F H 80 16 125/62 94 11/28/17 11:58 99.0 F H 18 100/52 95 Intake and Output 11/28/17 11/29/17 11/29/17 21:59 05:59 13:59 Intake Total 300 / 300 180 / 180 Output Total 0 / 0 Balance 300 / 300 180 / 180 Intake: Oral 300 / 300 180 / 180 Output: Void Amount 0 / 0 Other: Meal Lunch Percent of Meal Consumed 100% Feeding Ability Independent # Bowel Movements 0 Weight 148 lb 9 oz General appearance: no acute distress - Eye Eye exam: Present: PERRL - ENT ENT exam: Present: mucous membranes moist, normal exam - Respiratory Respiratory exam: Present: CTAB. Absent: accessory muscle use - Cardiovascular Cardiovascular exam: Present: irregular rhythm, systolic murmur - GI/Abdominal GI/Abdominal exam: Present: normal bowel sounds, soft. Absent: tenderness - Neurological Exam Neurological exam: Present: alert, oriented X3 Medical - DS: Data Procedures and tests throughout hospitalization: Colonoscopy by Dr. Rony Lin on 11/27: Multiple diverticula, none with fresh blood. 4-5 mm polyp was snared. AVM in the cecum was not bleeding, was ablated. Labs on day of discharge: Laboratory Last Values WBC 5.8 K/mcL (4.5-11.0) 11/29/17 03:30 RBC 2.71 M/mcL (4.50-5.90) L 11/29/17 03:30 Hgb 8.7 g/dL (13.5-16.5) L 11/29/17 03:30 Hct 26.3 % (41.0-55.0) L 11/29/17 03:30 MCV 97.0 fL (80.0-100.0) 11/29/17 03:30 MCH 32.1 pg (26.0-34.0) 11/29/17 03:30 MCHC 33.1 g/dL (31.0-36.0) 11/29/17 03:30 RDW 17.9 % (11.5-14.5) H 11/29/17 03:30 Plt Count 110 K/mcL (140-440) L 11/29/17 03:30 MPV 8.2 fL (7.4-10.4) 11/29/17 03:30 Gran % 79.0 % (38.0-78.0) H 11/29/17 03:30 Lymph % (Auto) 9.3 % (15.5-49.0) L 11/29/17 03:30 [place] % (Auto) 9.8 % (1.0-12.0) 11/29/17 03:30 Eos % (Auto) 1.6 % (0.0-7.0) 11/29/17 03:30 Baso % (Auto) 0.3 % (0.0-2.0) 11/29/17 03:30 Gran # 4.6 K/mcL (1.8-8.0) 11/29/17 03:30 Lymph # (Auto) 0.5 K/mcL (1.5-4.8) L 11/29/17 03:30 [place] # (Auto) 0.6 K/mcL (0.1-0.9) 11/29/17 03:30 Eos # (Auto) 0.1 K/mcL (0.0-0.7) 11/29/17 03:30 Baso # (Auto) 0 K/mcL (0.0-0.3) 11/29/17 03:30 PT 15.2 sec (11.9-14.5) H 11/26/17 09:52 INR 1.2 (0.9-1.1) H 11/26/17 09:52 APTT 44 sec (20-37) H 11/26/17 09:52 Sodium 139 mmol/L (133-145) 11/29/17 03:30 Potassium 4.2 mmol/L (3.3-5.1) 11/29/17 03:30 Chloride 97 mmol/L (96-108) 11/29/17 03:30 Carbon Dioxide 26 mmol/L (22-30) 11/29/17 03:30 Anion Gap 16.0 (8-16) 11/29/17 03:30 BUN 37 mg/dl (8-23) H 11/29/17 03:30 Creatinine 3.0 mg/dl (0.7-1.2) H 11/29/17 03:30 GFR Calculation 18 11/29/17 03:30 Glucose 88 mg/dL (70-105) 11/29/17 03:30 Uric Acid 3.1 mg/dL (2.5-8.0) 11/29/17 03:30 Calcium 9.4 mg/dl (8.6-10.4) 11/29/17 03:30 Phosphorus 3.1 mg/dL (2.7-4.5) 11/29/17 03:30 Magnesium 1.9 mg/dL (1.6-2.5) 11/29/17 03:30 Total Bilirubin 0.7 mg/dL (0.0-1.0) 11/29/17 03:30 Direct Bilirubin 0.2 mg/dL (0.0-0.3) 11/29/17 03:30 GGT 57 U/L (8-61) 11/29/17 03:30 AST 26 U/l (0-37) 11/29/17 03:30 ALT 18 U/l (0-40) 11/29/17 03:30 Alkaline Phosphatase 163 U/L (39-117) H 11/29/17 03:30 Lactate Dehydrogenase 161 U/L (94-250) 11/29/17 03:30 Total Protein 5.9 gm/dL (5.9-8.4) 11/29/17 03:30 Albumin 3.0 gm/dL (3.2-5.2) L 11/29/17 03:30 Globulin 2.9 gm/dL (2.2-3.7) 11/29/17 03:30 Albumin/Globulin Ratio 1.0 (1.0-2.3) 11/29/17 03:30 Triglycerides 46 mg/dl (<150) 11/29/17 03:30 Medical - DS: A/P - Patient/Caregiver Discharge Instructions Activity: increase activity as tolerated Diet: Renal Additional Instructions: Do not take aspirin, NSAID's (ibuprofen, naproxen) or other blood thinners Prescriptions: Psyllium Husk/Aspartame [Metamucil Fiber Singles Packet] 3.4 gm PO DAILY #30 powd.pack Sennosides [Senna] 8.6 mg PO HS #30 tab - Problem Maintenance (1) Lower gastrointestinal hemorrhage Status: Resolved (2) Anemia associated with acute blood loss Status: Resolved (3) End stage renal disease Status: Chronic Comment: Had dialysis yesterday without any problems without heparin. GI bleed, no new episodes. (4) Atrial fibrillation with slow ventricular response Status: Chronic - Follow up Plan Follow up with: Junito Titus MD [Primary Care Provider] - (1-2 weeks) Disposition: er LT Prognosis: Fair Rehab Potential: Fair Overall status at discharge: patient is progressing back to baseline Medical - DS: Qual - VTE Deep Vein Thrombosis/Pulmonary Embolism Present on Admission: No
--- NOTE | 2017-11-29 08:55 | Operative Note ---
DATE OF OPERATION: 11/27/2017 PREPROCEDURE DIAGNOSIS: Lower GI bleed secondary to diverticular bleeding versus angiodysplasia. POSTPROCEDURE DIAGNOSES: 1. Lower GI bleeding resolved, probably secondary to diverticula. 2. Colon polyps, one lipoma, hemorrhoids, nonbleeding angiodysplasia cecum -- treated. 3. Diverticulosis, extensive both right and left side. PROCEDURE: Colonoscopy with polypectomy and ablation of lesion. SURGEON: Rony Caro M.D. INSTRUMENT USED: Olympus KAREN [id number] colonoscope. SPECIMENS OBTAINED: Two polyps; one from the ascending colon, one from descending colon. INDICATIONS FOR PROCEDURE: The patient is an 87-year-old gentleman referred to me by one of the hospitalists, Dr. Rossy Ayala. The patient is on dialysis. He has had a colonoscopy perhaps about 5 years ago. He had diverticulosis. He did come in with bleeding. He did have some hemodynamic instability. The bleeding persisted. Therefore bowel prep was ordered and full colonoscopy is indicated. INFORMED CONSENT: The procedure was reviewed with the patient. The patient had no further questions and accepts the risks and benefits thereof. One of the risks that were discussed included . Additional risks that were also discussed included bleeding, reaction to medication, possible perforation and possible need for surgery. IV MEDICATIONS USED: Versed 1 mg and propofol 60 mg. FINDINGS: RECTUM: Hemorrhoids were noted. There was some solid fecal matter but no fresh blood noted. SIGMOID/DESCENDING COLON: Many diverticula were noted. In the proximal portion, there was a 4 to 5 mm adenomatous-appearing polyp removed with the snare cold technique. There was some bleeding. One or 2 mL of hypertonic saline-epinephrine mixture were injected to decrease the risk of further bleeding. SPLENIC FLEXURE/TRANSVERSE COLON/HEPATIC FLEXURE: Normal. ASCENDING COLON: In the distal portion, there was a lipoma about 1 x 2 cm in size. No biopsies were taken. In the proximal portion, there was a 6 mm adenomatous-appearing polyp removed with snare cold technique. This did persistent in bleeding. Three or 4 mL of hypertonic saline-epinephrine mixture were injected. Several diverticula were noted. CECUM: There was a nonbleeding angiodysplasia noted. This was treated with about 1 mL of ethanolamine to destroy it. This will decrease the chance of further bleeding. TERMINAL ILEUM: This was inspected for a few centimeters and was found to be normal. RECOMMENDATIONS: The patient should be observed. Liquid diet can be allowed. If the bleeding stops, the diet may be increased and the patient can be discharged. If the bleeding persists, please call. Repeat colonoscopy may be considered. I doubt the patient will need another colonoscopy. If, however, his health and life expectancy are much better than average in 5 to 7 years, one may consider one. SEDATION TIME: 1445 to 1555. Please refer to the preprocedure nurse's notes, procedure flowsheet, procedure record, and post-procedure assessment for details of the sedation including the pre-, intra-, and post-service work. CRD:lc Job ID: [id number] Doc ID: [id number] Rony Ayala M.D.
[2017-11-29] MEDS: ALLOPURINOL 300 MG TABLET PO SCH (09:45)
--- NOTE | 2017-11-29 12:31 | Surgical Pathology Report ---
HISTOLOGY SPECIMEN MICROSCOPIC DIAGNOSIS SPECIMEN A - COLON, ASCENDING, POLYPECTOMY: -- TUBULAR ADENOMA(S), MULTIPLE FRAGMENTS. SPECIMEN B - COLON, DESCENDING, POLYPECTOMY: -- TUBULAR ADENOMA. (SE:codie) CLINICAL HISTORY Rectal bleedings. PROCEDURAL IMPRESSION Polyps. GROSS DESCRIPTION Specimen A is received in formalin labeled with the patient identifiers and ascending colon polyp and consists of seven light perez soft tissue fragments measuring from 0.2 to 0.3 cm in greatest dimension. Entirely submitted in one cassette. Specimen B is received in formalin labeled with the patient identifiers and descending colon polyp and consists of a single light perez soft tissue fragment measuring 0.5 cm in greatest dimension. Entirely submitted in one cassette. (SE:adj) Electronically Signed by: Norma Christianson D.O.
== END 2017-11-29 11:30 | DRG 377 ==
LOC: ED 08:52 → ICU 17:10
PROVIDERS: ADMIT Internal Medicine; ATTEND Internal Medicine

== ENCOUNTER 2017-12-10 11:07 | Inpatient (IN) ==
--- NOTE | 2017-12-10 11:56 | Emergency Department Note ---
GI Bleed HPI - General Chief complaint: Rectal Bleed Stated complaint: Rectal bleeding Time Seen by Provider: 12/10/17 11:39 Source: patient Mode of arrival: wheelchair Limitations: no limitations - History of Present Illness HPI Narrative: 87-year-old male presents with dark blood in his stool that started this morning. He was seen 2 weeks ago for rectal bleed and had a scope and had a transfusion. He states he was doing well until today. He denies shortness of breath, dizziness, or any abdominal pain. He is not on any blood thinners. He is on dialysis and missed his dialysis today. No nausea or vomiting. He states his blood pressures are usually low. - Related Data Home Medications Medication Instructions Recorded Confirmed Allopurinol [Zyloprim] 300 mg PO DAILY 11/26/17 12/10/17 Carvedilol [Coreg] 3.125 mg PO QHS 11/26/17 12/10/17 Cinacalcet HCl [Sensipar] 60 mg PO .EVERY OTHER DAY 11/26/17 12/10/17 Gabapentin [Neurontin] 100 mg PO QHS 11/26/17 12/10/17 Omeprazole [Prilosec] 20 mg PO BIDAC 11/26/17 12/10/17 Pramipexole [Mirapex] 0.5 mg PO HS 11/26/17 12/10/17 Vit B Cmplx 3/FA/Vit C/Biotin 1 each PO DAILY 11/26/17 12/10/17 [Vol-Care Rx Tablet] traZODone HCL [Desyrel] 150 mg PO HS 11/26/17 12/10/17 Previous Rx's Medication Instructions Recorded Psyllium Husk/Aspartame [Metamucil 3.4 gm PO DAILY #30 powd.pack 11/29/17 Fiber Singles Packet] Sennosides [Senna] 8.6 mg PO HS #30 tab 11/29/17 Allergies Allergy/AdvReac Type Severity Reaction Status Date / Time No Known Drug Allergies Allergy Verified 12/10/17 11:12 Review of Systems All systems ED: reviewed and negative except as stated. Past Medical History - Past Medical History Medical history: Reports: GI bleed, hypertension, renal disease (CRF - dialysis. ), other (Defibrillator. Scarlet fever age . Scoliosis. Diverticulitis. No PUD.). Denies: CHF Psychiatric history: Reports: no psych history Surgical history ED: Reports: other (defibrillator implanted. scope with removal of polyps) Family history: Reports: non-contributory - Social History smoking status: Former smoker Physical Exam Limitations: no limitations General appearance: alert, in no apparent distress Head: atraumatic Eye: Present: normal appearance. Absent: conjunctival injection Neck: Present: normal inspection, full ROM Chest: Present: normal inspection, symmetric chest wall rise Respiratory: Present: normal lung sounds bilaterally Cardiovascular: Present: irregular rhythm, normal heart sounds Abdominal: Present: soft, normal bowel sounds. Absent: tenderness Rectal: Present: decreased rectal tone, heme (+) stool, bloody stool Extremities: Present: normal inspection, full ROM Neurological: Present: alert, oriented X3 Psychiatric: Present: normal affect, normal mood Skin: Present: warm, dry, intact Course Course Narrative: Talked with Dr. Torres and he recommends observation for 48 hours to see if he continues to bleed. He does not object to having transfused if he is symptomatic. The patient does not seem to be symptomatic at this time. His blood pressures have been low but that seems to be normal for him. We have given him fluids to keep his blood pressure up. Still waiting on 2 units of packed red blood cells. He will be admitted by Dr. Larson. Vital Signs Temperature 96.9 F L 12/10/17 11:08 Pulse Rate 107 H 12/10/17 11:08 Respiratory Rate 14 12/10/17 11:08 Blood Pressure 92/50 12/10/17 11:08 Pulse Oximetry (%) 100 12/10/17 11:08 Temperature 96.9 F L 12/10/17 11:08 Pulse Rate 58 L 12/10/17 14:31 Respiratory Rate 17 12/10/17 14:55 Blood Pressure 109/56 12/10/17 14:55 Pulse Oximetry (%) 98 12/10/17 14:31 GI Bleed - Lab Data Lab results reviewed: Yes I reviewed the patient's lab results. Result diagrams: 12/10/17 14:27 12/10/17 11:56 Lab Results 12/10/17 12/10/17 12/10/17 Range/Units 11:56 11:56 11:56 WBC 4.7 (4.5-11.0) K/mcL RBC 2.34 L (4.50-5.90) M/mcL Hgb 7.7 L (13.5-16.5) g/dL Hct 23.2 L (41.0-55.0) % MCV 99.0 (80.0-100.0) fL MCH 33.0 (26.0-34.0) pg MCHC 33.4 (31.0-36.0) g/dL RDW 17.6 H (11.5-14.5) % Plt Count 154 (140-440) K/mcL MPV 8.2 (7.4-10.4) fL Total Counted 100 Seg Neutrophils % 81 H (38-78) % Band Neutrophils % Not Reportable Lymphocytes % 12 L (15-49) % Monocytes % (Manual) 5 (1-12) % Eosinophils % (Manual) 2 (0-7) % Platelet Estimate Normal (NORMAL) RBC Morphology Abnorm A (NORMAL) Anisocytosis 1+ A (NONE SEEN) PT 14.5 (11.9-14.5) sec INR 1.1 (0.9-1.1) Sodium 132 L (133-145) mmol/L Potassium 4.3 (3.3-5.1) mmol/L Chloride 89 L (96-108) mmol/L Carbon Dioxide 29 (22-30) mmol/L Anion Gap 14.0 (8-16) BUN 53 H (8-23) mg/dl Creatinine 2.8 H (0.7-1.2) mg/dl GFR Calculation 20 Glucose 125 H (70-105) mg/dL Calcium 8.4 L (8.6-10.4) mg/dl Total Bilirubin 0.6 (0.0-1.0) mg/dL AST 25 (0-37) U/l ALT 22 (0-40) U/l Alkaline Phosphatase 180 H (39-117) U/L Total Protein 6.2 (5.9-8.4) gm/dL Albumin 3.3 (3.2-5.2) gm/dL Globulin 2.9 (2.2-3.7) gm/dL Albumin/Globulin Ratio 1.1 (1.0-2.3) /16/18 Range/Units 14:27 WBC (4.5-11.0) K/mcL RBC (4.50-5.90) M/mcL Hgb 8.6 L (13.5-16.5) g/dL Hct 25.5 L (41.0-55.0) % MCV (80.0-100.0) fL MCH (26.0-34.0) pg MCHC (31.0-36.0) g/dL RDW (11.5-14.5) % Plt Count (140-440) K/mcL MPV (7.4-10.4) fL Total Counted Seg Neutrophils % (38-78) % Band Neutrophils % Lymphocytes % (15-49) % Monocytes % (Manual) (1-12) % Eosinophils % (Manual) (0-7) % Platelet Estimate (NORMAL) RBC Morphology (NORMAL) Anisocytosis (NONE SEEN) PT (11.9-14.5) sec INR (0.9-1.1) Sodium (133-145) mmol/L Potassium (3.3-5.1) mmol/L Chloride (96-108) mmol/L Carbon Dioxide (22-30) mmol/L Anion Gap (8-16) BUN (8-23) mg/dl Creatinine (0.7-1.2) mg/dl GFR Calculation Glucose (70-105) mg/dL Calcium (8.6-10.4) mg/dl Total Bilirubin (0.0-1.0) mg/dL AST (0-37) U/l ALT (0-40) U/l Alkaline Phosphatase (39-117) U/L Total Protein (5.9-8.4) gm/dL Albumin (3.2-5.2) gm/dL Globulin (2.2-3.7) gm/dL Albumin/Globulin Ratio (1.0-2.3) Disposition Pt seen by LIBRARIAN ASSISTANT/PA only: Yes Clinical Impression: GI bleed Disposition: Xfer As Inpt ([facility]) Condition: Fair Referrals: Junito Titus MD [Primary Care Provider] -
[2017-12-10] MEDS ORDERED: 0.9 % SODIUM CHLORIDE 1,000 ML IV ONE (12:02)
[2017-12-10 12:29] LABS: Mean Corpuscular HGB Conc 33.4 g/dL (31.0-36.0); Platelet Count 154 K/mcL (140-440); RBC 2.34 M/mcL (4.50-5.90); Red Cell Distribution Width 17.6 % (11.5-14.5)
[2017-12-10 12:53] LABS: ALT/SGPT 22 U/l (0-40); Albumin 3.3 gm/dL (3.2-5.2); Albumin/Globulin Ratio 1.1 (1.0-2.3); Alkaline Phosphatase 180 U/L (39-117); Blood Urea Nitrogen 53 mg/dl (8-23)
[2017-12-10 12:57] LABS: Anisocytosis 1+ (NONE SEEN); Eosinophils % (Manual) 2 % (0-7); Lymphocytes % 12 % (15-49); Monocytes % (Manual) 5 % (1-12); Platelet Estimate NORMAL (NORMAL); RBC Morphology ABNORM (NORMAL); Segmented Neutrophils % 81 % (38-78)
--- NOTE | 2017-12-10 15:30 | Internal Med History&Physical ---
Medical - H&P: HPI Patient information: Note initiated : 12/10/17 at 3:20 pm Service Date, if different from initiated Date: [] Patient: Malvin Esquivel 87 y/o M admitted on for Rectal bleeding. Chief Complaint: Rectal bleeding History of present illness: Patient is an 87-year-old male known to me from an admission earlier this month with lower GI bleed. His history of stable end-stage renal disease on dialysis , chronic hypotension, chronic bradycardia, atrial and ventricular arrhythmia with AICD, atrial fibrillation and history of epistaxis while on anticoagulation. Old records from earlier this month are reviewed as summarized below. He was hospitalized here earlier this month with lower GI bleed. He presented with bloody bowel movements, eventually required packed red cells. He was seen by Dr. Lin, underwent endoscopy at that time. Multiple diverticula were noted, there was no fresh blood. A 4-5 millimeter polyp was snared. 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 He did well post procedure at that time, not any further bleeding and was discharged back to his care facility. Since then he has done well. He has not been on any anticoagulants, nonsteroidals nor aspirin. This morning however he developed dark red stools while at his skilled facility. He is transferred to the emergency department was found to have denice blood on rectal exam. He has not had much further rectal bleeding since he's been in the ED. Initial hemoglobin was 7.7, down from 8.7 at the time of previous discharge. Patient's being admitted for recurrent presumptive lower GI bleed. Patient was supposed to get hemodialysis today, has missed that due to his GI bleed. He denies any dyspnea, no lower extremity edema. Said no nausea vomiting, no hematemesis, no abdominal pain associated with his rectal bleeding. He's had no chest pain or tightness, no headache, no fevers, no chills. He did have couple teeth pulled yesterday, revealing records, does not appear to receive any nonsteroidals for analgesia. All systems: reviewed and no additional remarkable complaints except as stated Medical - H&P: PMH Medical history: End-stage renal disease on hemodialysis Wednesdays and Fridays for about the last 3 years Hypertension AICD/pacemaker (pacing spikes noted on telemetry) Diverticulosis Atrial fibrillation History of epistaxis Surgical history: AICD placement Pertinent family history: No significant history of gastrointestinal illness Social history: Former smoker. He does not drink alcohol. Medical - H&P: Meds Home Medications Medication Instructions Recorded Confirmed Type Allopurinol [Zyloprim] 300 mg PO DAILY 11/26/17 12/10/17 History Carvedilol [Coreg] 3.125 mg PO QHS 11/26/17 12/10/17 History Cinacalcet HCl [Sensipar] 60 mg PO .EVERY OTHER DAY 11/26/17 12/10/17 History Gabapentin [Neurontin] 100 mg PO QHS 11/26/17 12/10/17 History Omeprazole [Prilosec] 20 mg PO BIDAC 11/26/17 12/10/17 History Pramipexole [Mirapex] 0.5 mg PO HS 11/26/17 12/10/17 History Vit B Cmplx 3/FA/Vit C/Biotin 1 each PO DAILY 11/26/17 12/10/17 History [Vol-Care Rx Tablet] traZODone HCL [Desyrel] 150 mg PO HS 11/26/17 12/10/17 History Psyllium Husk/Aspartame [Metamucil 3.4 gm PO DAILY #30 powd.pack 11/29/17 Rx Fiber Singles Packet] Sennosides [Senna] 8.6 mg PO HS #30 tab 11/29/17 12/10/17 Rx Allergies Allergy/AdvReac Type Severity Reaction Status Date / Time No Known Drug Allergies Allergy Verified 12/10/17 11:12 Medical - H&P: Exam - Constitutional Vitals: Temp Pulse Resp BP Pulse Ox 96.9 F L 58 L 17 109/56 98 12/10/17 11:08 12/10/17 14:31 12/10/17 14:55 12/10/17 14:55 12/10/17 14:31 Exam: General: Sitting up in a gurney in the ED, no acute distress HEENT normocephalic. Pupils are 2 mm reactive bilaterally. There is scleral hemorrhage of the left medial lobe. No icterus. Conjunctivae are otherwise clear. Oropharynx is clear. Mandibular gumline with recent extractions. Tongue midline. Mucous membranes moist. Neck: Supple, no meningismus, no thyromegaly. Chest: Clear to auscultation, no rales, unlabored. Cardiovascular: Irregularly irregular, 2/6 systolic murmur, no lower extremity edema. Carotid pulses 2+, no bruits appreciated. Abdomen: Soft, nontender, no guarding, no rebound. Bowel sounds are bit hyperactive. No hepatomegaly. Rectal exam in the ED showed denice blood. Skin: Is warm, dry, decreased skin turgor. Old, faded ecchymoses on the arms. Musculoskeletal: No joint swelling, erythema. Full range of motion in upper and lower extremities. Muscle mass is diminished throughout. Neurologic: Patient is alert, oriented 3. Has weakness in the legs, is in bed most of the time at baseline, similar to prior presentation. Sensations intact to light touch. Patient's mood and affect are normal. He has good insight into his condition. Medical - H&P: Reslt - Labs CBC & Chem 7: 12/10/17 14:27 12/10/17 11:56 Labs: Short CBC 12/10/17 12/10/17 Range/Units 11:56 14:27 WBC 4.7 (4.5-11.0) K/mcL Hgb 7.7 L 8.6 L (13.5-16.5) g/dL Hct 23.2 L 25.5 L (41.0-55.0) % Plt Count 154 (140-440) K/mcL BMP 12/10/17 11:56 Sodium 132 L Potassium 4.3 Chloride 89 L Carbon Dioxide 29 BUN 53 H Creatinine 2.8 H Glucose 125 H Calcium 8.4 L Liver Function 12/10/17 Range/Units 11:56 Total Bilirubin 0.6 (0.0-1.0) mg/dL AST 25 (0-37) U/l ALT 22 (0-40) U/l Alkaline Phosphatase 180 H (39-117) U/L Albumin 3.3 (3.2-5.2) gm/dL - EKG Data -: EKG Reviewed by Myself (A fib, rate 63 with PVC's, no ST changes) Medical - H&P: A/P (1) Lower gastrointestinal hemorrhage Current visit: Yes Status: Acute (2) Atrial fibrillation with slow ventricular response Current visit: No Status: Chronic (3) End stage renal disease Problem details: Had dialysis yesterday without any problems without heparin. GI bleed, no new episodes. Current visit: No Status: Chronic - Narrative A/P Narrative: 87-year-old male with a history of easy epistaxis while on aspirin or anticoagulants, was admitted here with lower GI bleed while on aspirin earlier this month. Now re-presents with recurrent bright red blood per rectum. Lower GI bleed. Previous bleeding was presumptive diverticular. 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 Would be a bit late for post polypectomy bleeding. It is possible he has other AVMs. Though given the self-limited nature of the previous bleed, suspicion was for diverticular source. Suspect this may be recurrent diverticular bleed. Plan: Inpatient admission to telemetry, anticipate to midnights of care, possible transfusions, possible need for endoscopy Dr. Lin has discussed the case with the ED, he can be available if needed for colonoscopy. Type and cross, transfuse if hemoglobin drops or further bleeding Clear liquid diet without red foods End-stage renal disease. Patient missed hemodialysis today. Electrolytes and volume status are adequate. Plan: Consult Dr. Titus, his lvn lpn Atrial fibrillation, not on anticoagulation due to bleeding complications. He has backup pacing for bradycardia with a pacer/AICD in place. Plan: Continue his usual home medications. CODE STATUS is discussed with the patient, he wishes to be full code. Prophylaxis: PPI, SCDs.
[2017-12-10] MEDS ORDERED: ACETAMINOPHEN 325 MG TABLET PO PRN (17:05)
[2017-12-10] MEDS ORDERED: ONDANSETRON 4 MG/2 ML VIAL IV PRN (17:05)
[2017-12-10] MEDS: OMEPRAZOLE 20 MG CAPSULE PO SCH (21:21)
[2017-12-10] MEDS: PRAMIPEXOLE 0.25 MG TABLET PO SCH (21:21)
[2017-12-10] MEDS: traZODone HCL 150 MG TABLET PO SCH (21:21)
[2017-12-10] MEDS: GABAPENTIN 100 MG CAPSULE PO SCH (21:22)
[2017-12-10] MEDS: CARVEDILOL 3.125 MG TABLET PO SCH (21:22)
[2017-12-11 04:15] LABS: ALT/SGPT 18 U/l (0-40); Albumin 2.7 gm/dL (3.2-5.2); Alkaline Phosphatase 157 U/L (39-117); Bilirubin,Direct 0.2 mg/dL (0.0-0.3); Blood Urea Nitrogen 59 mg/dl (8-23); Gamma Glutamyl Transpeptidase 49 U/L (8-61); Uric Acid 3.5 mg/dL (2.5-8.0)
[2017-12-11] MEDS ORDERED: 0.9 % SODIUM CHLORIDE 250 ML IV SCH ×2 (05:30→10:45)
[2017-12-11] MEDS: VITAMIN B COMPLEX 1 CAPSULE PO SCH (08:52)
[2017-12-11] MEDS: OMEPRAZOLE 20 MG CAPSULE PO SCH ×2 (08:52→17:57)
[2017-12-11] MEDS: ALLOPURINOL 300 MG TABLET PO SCH (09:00)
--- NOTE | 2017-12-11 10:51 | Internal Med Progress Note ---
Medical - PN: Subj Patient information: Note initiated : 12/11/17 at 10:49 am Service Date, if different from initiated Date: [] Patient: Malvin Esquivel 87 y/o M admitted on 12/10/17 for Rectal bleeding. Chief Complaint: f/u GI Bleed Interval history: December 10 Patient is an 87-year-old male known to me from an admission earlier this month with lower GI bleed. His history of stable end-stage renal disease on dialysis , chronic hypotension, chronic bradycardia, atrial and ventricular arrhythmia with AICD, atrial fibrillation and history of epistaxis while on anticoagulation. Old records from earlier this month are reviewed as summarized below. He was hospitalized here earlier this month with lower GI bleed. He presented with bloody bowel movements, eventually required packed red cells. He was seen by Dr. Lin, underwent endoscopy at that time. Multiple diverticula were noted, there was no fresh blood. A 4-5 millimeter polyp was snared. 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 He did well post procedure at that time, not any further bleeding and was discharged back to his care facility. Since then he has done well. He has not been on any anticoagulants, nonsteroidals nor aspirin. This morning however he developed dark red stools while at his skilled facility. He is transferred to the emergency department was found to have denice blood on rectal exam. He has not had much further rectal bleeding since he's been in the ED. Initial hemoglobin was 7.7, down from 8.7 at the time of previous discharge. Patient's being admitted for recurrent presumptive lower GI bleed. December 11 Having bloody bowel movement last night, hemoglobin dropped to 6.9 at 3:00 this morning. Receiving 10 units of packed cells. He has had [address] further [address] movements[address] Dr[address] Caro has discussed the case with his nurse, we will transfuse and supportive care for now. Patient without significant complaints, no abdominal pain, no dyspnea. - Constitutional Vitals: Vital Signs Temp Pulse Resp BP Pulse Ox 97.0 F 49 L 18 94/48 98 12/11/17 07:55 12/11/17 08:00 12/11/17 07:55 12/11/17 07:55 12/11/17 07:55 Period Temp Pulse Resp BP Sys/Tolbert Pulse Ox Last 24 Hr 96.9 F-98.9 F 37-107 11-24 84-150/47-138 82-100 Intake and Output 12/10/17 12/11/17 12/11/17 21:59 05:59 13:59 Intake Total 554 / 554 645 / 645 Output Total 0 / 0 350 / 350 Balance 554 / 554 295 / 295 Weight 150 lb 1.6 oz 150 lb 1.6 oz Patient Weight 12/12/17 05:59 Weight 150 lb 1.6 oz Intake & Output: Intake & Output 12/10/17 12/11/17 12/11/17 21:59 05:59 13:59 Intake Total 554 / 554 645 / 645 Output Total 0 / 0 350 / 350 Balance 554 / 554 295 / 295 Weight 150 lb 1.6 oz 150 lb 1.6 oz Intake: IV 554 / 554 Sodium Chloride 0.9% 1,000 ml @ 554 / 554 Wide Open IV BOLUS ONE Rx#: [id number] Blood Product 645 / 645 Output: Void Amount 0 / 0 Urine/Stool Mix 350 / 350 Other: Stool Size Moderate Moderate Stool Color Dark Red Blood Dark Red Blood Stool Consistency Soft Soft # Voids 1 # Bowel Movements 0 1 1 # of times incontinent of 1 Bowels Exam: General: Sitting in bed in no acute distress Chest: Clear, no rales Cardiovascular: Regular/bradycardic, no edema Abdomen: Soft, nontender, hyperactive bowel sounds. Neuro: Alert, oriented Medical - PN: Obj Da - Labs CBC & Chem 7: 12/11/17 03:10 12/11/17 03:10 Labs: Abnormal Lab Results 12/11/17 12/11/17 12/10/17 03:10 03:10 23:02 RBC Hgb 6.9 L* 7.5 L Hct 20.5 L* 22.6 L RDW Seg Neutrophils % Lymphocytes % RBC Morphology Anisocytosis Sodium 131 L Chloride 91 L BUN 59 H Creatinine 3.1 H Glucose Calcium 8.0 L Alkaline Phosphatase 157 H Total Protein 5.3 L Albumin 2.7 L 12/10/17 12/10/17 12/10/17 19:05 14:27 11:56 RBC Hgb 7.5 L 8.6 L Hct 22.7 L 25.5 L RDW Seg Neutrophils % Lymphocytes % RBC Morphology Anisocytosis Sodium 132 L Chloride 89 L BUN 53 H Creatinine 2.8 H Glucose 125 H Calcium 8.4 L Alkaline Phosphatase 180 H Total Protein Albumin 12/10/17 11:56 RBC 2.34 L Hgb 7.7 L Hct 23.2 L RDW 17.6 H Seg Neutrophils % 81 H Lymphocytes % 12 L RBC Morphology Abnorm A Anisocytosis 1+ A Sodium Chloride BUN Creatinine Glucose Calcium Alkaline Phosphatase Total Protein Albumin Meds: Medications Acetaminophen (Tylenol) 650 mg PO Q6HP PRN PRN Reason: PAIN/FEVER > 101 Allopurinol (Zylopriim) 300 mg PO DAILY [facility] Carvedilol (Coreg) 3.125 mg PO QHS [facility] Last Admin: 12/10/17 21:22 Dose: 3.125 mg Cinacalcet (Sensipar) 60 mg PO Q48H [facility] Gabapentin (Neurontin) 100 mg PO QHS [facility] Last Admin: 12/10/17 21:22 Dose: 100 mg Sodium Chloride (Sodium Chloride 0.9%) 250 mls @ 20 mls/hr IV .[id number] [facility] Stop: 12/11/17 17:59 Last Admin: 12/11/17 06:43 Dose: 20 mls/hr Sodium Chloride (Sodium Chloride 0.9%) 250 mls @ 20 mls/hr IV .[id number] [facility] Stop: 12/11/17 23:14 Omeprazole (Prilosec) 20 mg PO BIDAC [facility] Last Admin: 12/11/17 08:52 Dose: 20 mg Ondansetron HCl (Zofran) 4 mg IV Q4HP PRN PRN Reason: Nausea And Vomiting Pramipexole Dihydrochloride (Mirapex) 0.5 mg PO HS [facility] Last Admin: 12/10/17 21:21 Dose: 0.5 mg Trazodone HCl (Desyrel) 150 mg PO HS [facility] Last Admin: 12/10/17 21:21 Dose: 150 mg Vitamin B Complex (Vitamin B Complex) 1 cap PO DAILY [facility] Last Admin: 12/11/17 08:52 Dose: 1 cap Medical - PN: A/P - Time Spent With Patient Total time spent is greater than 50% in coordination of care (as documented) at patient's floor/unit and/or counseling patient: Greater than 35 minutes (1) Lower gastrointestinal hemorrhage Status: Acute Current Visit: Yes (2) Atrial fibrillation with slow ventricular response Status: Chronic Current Visit: No (3) End stage renal disease Problem details: Had dialysis yesterday without any problems without heparin. GI bleed, no new episodes. Status: Chronic Current Visit: No - Narrative A/P Narrative: 87-year-old male with a history of frequent epistaxis while on aspirin or anticoagulants, was admitted here with lower GI bleed while on aspirin earlier this month. Now re-presents with recurrent bright red blood per rectum. Lower GI bleed. Previous bleeding was presumptive diverticular, also with a cecal AVM that was cauterized, and a polyp snared and removed. Ongoing lower GI blood loss overnight, requiring transfusion. Plan: Transfuse 2 units packed red cells, continue to monitor hemoglobin. If he continues to have ongoing blood loss, may require repeat endoscopy and/or interventional radiology study. Continue with clear liquid diet without red foods at this time. End-stage renal disease. Patient missed hemodialysis Wednesday. Electrolytes and volume status are adequate. Plan: Consulted Dr. Titus, his drying machine back tender, plans for HD today. Atrial fibrillation, not on anticoagulation due to bleeding complications. He has backup pacing for bradycardia with a pacer/AICD in place. Plan: Continue his usual home medications. Medical - PN: Qual - Stroke Symptom Onset Unknown: No - VTE Deep Vein Thrombosis/Pulmonary Embolism Present on Admission: No
[2017-12-11] MEDS: PRAMIPEXOLE 0.25 MG TABLET PO SCH (20:41)
[2017-12-11] MEDS: CARVEDILOL 3.125 MG TABLET PO SCH (20:41)
[2017-12-11] MEDS: GABAPENTIN 100 MG CAPSULE PO SCH (20:41)
[2017-12-11] MEDS: traZODone HCL 150 MG TABLET PO SCH (20:41)
[2017-12-12 06:24] LABS: ALT/SGPT 16 U/l (0-40); Albumin 2.9 gm/dL (3.2-5.2); Albumin/Globulin Ratio 1.1 (1.0-2.3); Alkaline Phosphatase 161 U/L (39-117); Bilirubin,Direct 0.3 mg/dL (0.0-0.3); Blood Urea Nitrogen 31 mg/dl (8-23); Gamma Glutamyl Transpeptidase 49 U/L (8-61); Uric Acid 2.6 mg/dL (2.5-8.0)
[2017-12-12] MEDS ORDERED: CINACALCET 30 MG TABLET PO SCH (08:00)
[2017-12-12] MEDS: VITAMIN B COMPLEX 1 CAPSULE PO SCH (08:06)
[2017-12-12] MEDS: ALLOPURINOL 300 MG TABLET PO SCH (08:06)
[2017-12-12] MEDS: OMEPRAZOLE 20 MG CAPSULE PO SCH ×2 (08:08→17:20)
--- NOTE | 2017-12-12 08:24 | Internal Med Progress Note ---
Medical - PN: Subj Patient information: Note initiated : 12/12/17 at 8:20 am Service Date, if different from initiated Date: [] Patient: Malvin Esquivel 87 y/o M admitted on 12/10/17 for Rectal bleeding. Chief Complaint: follow up GI bleed Interval history: December 10 Patient is an 87-year-old male known to me from an admission earlier this month with lower GI bleed. His history of stable end-stage renal disease on dialysis , chronic hypotension, chronic bradycardia, atrial and ventricular arrhythmia with AICD, atrial fibrillation and history of epistaxis while on anticoagulation. Old records from earlier this month are reviewed as summarized below. He was hospitalized here earlier this month with lower GI bleed. He presented with bloody bowel movements, eventually required packed red cells. He was seen by Dr. Lin, underwent endoscopy at that time. Multiple diverticula were noted, there was no fresh blood. A 4-5 millimeter polyp was snared. 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 He did well post procedure at that time, not any further bleeding and was discharged back to his care facility. Since then he has done well. He has not been on any anticoagulants, nonsteroidals nor aspirin. This morning however he developed dark red stools while at his skilled facility. He is transferred to the emergency department was found to have denice blood on rectal exam. He has not had much further rectal bleeding since he's been in the ED. Initial hemoglobin was 7.7, down from 8.7 at the time of previous discharge. Patient's being admitted for recurrent presumptive lower GI bleed. December 11 Having bloody bowel movement last night, hemoglobin dropped to 6.9 at 3:00 this morning. Receiving 10 units of packed cells. He has had 2 further [address] bowel movements[address] Dr[address] Caro has discussed the case with his nurse, we will transfuse and supportive care for now. Patient without significant complaints, no abdominal pain, no dyspnea. December 12 Still passing some blood in bowel movements, though hemoglobin responded very nicely to 2 units and has remained stable. Received hemodialysis yesterday. No dyspnea. No abdominal pain. No nausea or vomiting, tolerating clear liquids. - Constitutional Vitals: Vital Signs Temp Pulse Resp BP Pulse Ox 97.2 F 67 18 98/60 97 12/12/17 07:17 12/11/17 19:53 12/12/17 07:17 12/12/17 07:17 12/12/17 07:17 Period Temp Pulse Resp BP Sys/Tolbert Pulse Ox Last 24 Hr 96.7 F-98.6 F 67-80 16-18 87-112/49-80 96-97 Intake and Output 12/11/17 12/12/17 12/12/17 21:59 05:59 13:59 Intake Total 1050 / 1050 360 / 360 Output Total 3700 / 3700 275 / 275 Balance -2650 / -2650 85 / 85 Weight 144 lb Intake & Output: Intake & Output 12/11/17 12/12/17 12/12/17 21:59 05:59 13:59 Intake Total 1050 / 1050 360 / 360 Output Total 3700 / 3700 275 / 275 Balance -2650 / -2650 85 / 85 Weight 144 lb Intake: Oral 720 / 720 360 / 360 Blood Product 330 / 330 Output: Void Amount 275 / 275 Hemodialysis UF 3700 / 3700 Other: Stool Size Small Small Stool Color Dark Red Blood Dark Red Blood Stool Consistency Soft Soft # Voids 1 # Bowel Movements 1 1 Exam: General: In bed in no acute distress Chest: Clear, no rales Cardiac vascular: Irregular with murmur, unchanged, no edema Abdomen: Soft, active bowel sounds in all quadrants, no tenderness to palpation , no guarding, no rebound Neuro: Alert, oriented, speech fluent Medical - PN: Obj Da - Labs CBC & Chem 7: 12/12/17 05:11 12/12/17 05:11 Labs: Abnormal Lab Results 12/12/17 12/12/17 12/12/17 05:11 05:11 01:57 RBC Hgb 10.5 L 10.2 L Hct 30.8 L 29.5 L RDW Seg Neutrophils % Lymphocytes % RBC Morphology Anisocytosis Sodium Chloride 94 L BUN 31 H Creatinine 2.2 H Glucose Calcium 8.4 L Alkaline Phosphatase 161 H Total Protein 5.6 L Albumin 2.9 L 12/11/17 12/11/17 12/11/17 21:52 18:16 14:09 RBC Hgb 10.7 L 11.0 L 8.7 L Hct 31.0 L 31.8 L 25.5 L RDW Seg Neutrophils % Lymphocytes % RBC Morphology Anisocytosis Sodium Chloride BUN Creatinine Glucose Calcium Alkaline Phosphatase Total Protein Albumin 12/11/17 12/11/17 12/11/17 10:28 03:10 03:10 RBC Hgb 8.3 L 6.9 L* Hct 24.6 L 20.5 L* RDW Seg Neutrophils % Lymphocytes % RBC Morphology Anisocytosis Sodium 131 L Chloride 91 L BUN 59 H Creatinine 3.1 H Glucose Calcium 8.0 L Alkaline Phosphatase 157 H Total Protein 5.3 L Albumin 2.7 L 12/10/17 12/10/17 12/10/17 23:02 19:05 14:27 RBC Hgb 7.5 L 7.5 L 8.6 L Hct 22.6 L 22.7 L 25.5 L RDW Seg Neutrophils % Lymphocytes % RBC Morphology Anisocytosis Sodium Chloride BUN Creatinine Glucose Calcium Alkaline Phosphatase Total Protein Albumin 12/10/17 12/10/17 11:56 11:56 RBC 2.34 L Hgb 7.7 L Hct 23.2 L RDW 17.6 H Seg Neutrophils % 81 H Lymphocytes % 12 L RBC Morphology Abnorm A Anisocytosis 1+ A Sodium 132 L Chloride 89 L BUN 53 H Creatinine 2.8 H Glucose 125 H Calcium 8.4 L Alkaline Phosphatase 180 H Total Protein Albumin Meds: Medications Acetaminophen (Tylenol) 650 mg PO Q6HP PRN PRN Reason: PAIN/FEVER > 101 Allopurinol (Zylopriim) 300 mg PO DAILY [facility] Last Admin: 12/12/17 08:06 Dose: 300 mg Carvedilol (Coreg) 3.125 mg PO QHS [facility] Last Admin: 12/11/17 20:41 Dose: 3.125 mg Cinacalcet (Sensipar) 60 mg PO Q48H [facility] Last Admin: 12/12/17 08:11 Dose: 60 mg Gabapentin (Neurontin) 100 mg PO QHS [facility] Last Admin: 12/11/17 20:41 Dose: 100 mg Omeprazole (Prilosec) 20 mg PO BIDAC [facility] Last Admin: 12/12/17 08:08 Dose: 20 mg Ondansetron HCl (Zofran) 4 mg IV Q4HP PRN PRN Reason: Nausea And Vomiting Pramipexole Dihydrochloride (Mirapex) 0.5 mg PO [facility] Last Admin: 12/11/17 20:41 Dose: 0.5 mg Trazodone HCl (Desyrel) 150 mg PO HS [facility] Last Admin: 12/11/17 20:41 Dose: 150 mg Vitamin B Complex (Vitamin B Complex) 1 cap PO DAILY [facility] Last Admin: 12/12/17 08:06 Dose: 1 cap Medical - PN: A/P - Time Spent With Patient Total time spent is greater than 50% in coordination of care (as documented) at patient's floor/unit and/or counseling patient: Greater than 35 minutes (1) Lower gastrointestinal hemorrhage Status: Acute Current Visit: Yes (2) Atrial fibrillation with slow ventricular response Status: Chronic Current Visit: No (3) End stage renal disease Problem details: Had dialysis yesterday without any problems without heparin. GI bleed, no new episodes. Status: Chronic Current Visit: No - Narrative A/P Narrative: 87-year-old male with a history of frequent epistaxis while on aspirin or anticoagulants, was admitted here with lower GI bleed while on aspirin earlier this month. Now re-presents with recurrent bright red blood per rectum. Lower GI bleed. Previous bleeding earlier this month was presumptive diverticular, also with a cecal AVM that was cauterized, and a polyp snared and removed. He reports still passing blood in stool, however hemoglobins have been stable following transfusion yesterday. Had higher than expected bump in hemoglobin after blood. May be old blood passing, not fresh bleed. Plan: Continue to trend hemoglobin. If he continues to have ongoing blood loss , may require repeat endoscopy and/or interventional radiology study. Advance to full liquid diet. End-stage renal disease. Patient missed hemodialysis Wednesday. Received HD Wednesday. Electrolytes and volume status are adequate. 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 He has backup pacing for bradycardia with a pacer/AICD in place. Plan: Continue his usual home medications. Medical - PN: Qual - Stroke Symptom Onset Unknown: No - VTE Deep Vein Thrombosis/Pulmonary Embolism Present on Admission: No
--- NOTE | 2017-12-12 11:58 | Nephrology Progress Note ---
Subjective Patient information: Note initiated : 12/12/17 at 11:57 am Service Date, if different from initiated Date: [] Patient: Malvin Esquivel 87 y/o M admitted on 12/10/17 for Rectal bleeding. Chief Complaint: Chart reviewed. Still passing blood. Objective - Vital Signs Vital signs: Vital Signs Temp Pulse Pulse Resp BP Pulse Ox 12/12/17 08:00 50 L 12/12/17 07:17 97.2 F 18 98/60 97 12/12/17 04:00 97.1 F 16 103/54 97 12/12/17 00:00 97.8 F 18 102/52 96 12/11/17 19:53 67 12/11/17 19:51 98.6 F 18 105/80 97 12/11/17 19:26 105/50 12/11/17 19:17 100/52 12/11/17 19:02 108/62 12/11/17 18:47 108/66 12/11/17 18:32 110/53 12/11/17 18:21 108/66 12/11/17 18:17 111/60 12/11/17 18:12 97.1 F 80 108/66 12/11/17 18:02 107/58 12/11/17 17:47 112/61 12/11/17 17:45 96.9 F L 72 112/61 12/11/17 17:32 112/54 18 17:29 104/56 12/11/17 17:20 96.9 F L 68 104/56 12/11/17 17:17 108/49 12/11/17 17:02 102/61 12/11/17 16:48 96.7 F L 72 107/56 12/11/17 16:47 107/56 12/11/17 16:31 93/59 12/11/17 16:24 97.3 F 70 94/59 12/11/17 16:16 103/56 12/11/17 16:08 97.1 F 72 103/56 12/11/17 16:02 105/64 12/11/17 16:01 97.0 F 105/64 12/11/17 15:55 96.7 F L 78 105/64 12/11/17 15:47 94/61 12/11/17 15:38 97.0 F 73 94/61 12/11/17 15:31 102/55 12/11/17 15:17 102/55 12/11/17 15:14 97.0 F 71 102/55 12/11/17 15:02 102/56 12/11/17 14:53 97.4 F 73 103/59 12/11/17 14:52 103/59 12/11/17 14:48 99/62 12/11/17 14:42 93/53 12/11/17 14:02 102/49 12/11/17 13:02 87/64 12/11/17 12:02 97.3 F 100/63 Intake and Output 12/11/17 12/12/17 12/12/17 21:59 05:59 13:59 Intake Total 1050 / 1050 360 / 360 440 / 440 Output Total 3700 / 3700 275 / 275 Balance -2650 / -2650 85 / 85 440 / 440 Intake: Oral 720 / 720 360 / 360 440 / 440 Blood Product 330 / 330 Output: Void Amount 275 / 275 Hemodialysis UF 3700 / 3700 Other: Meal Breakfast Percent of Meal Consumed 100% Feeding Ability Independent Stool Size Small Small Stool Color Dark Red Blood Dark Red Blood Blood Tinged Stool Consistency Soft Soft Soft # Voids 1 # Bowel Movements 1 1 1 Weight 144 lb Intake & Output: Intake & Output 12/11/17 12/12/17 12/12/17 21:59 05:59 13:59 Intake Total 1050 / 1050 360 / 360 440 / 440 Output Total 3700 / 3700 275 / 275 Balance -2650 / -2650 85 / 85 440 / 440 Weight 144 lb Intake: Oral 720 / 720 360 / 360 440 / 440 Blood Product 330 / 330 Output: Void Amount 275 / 275 Hemodialysis UF 3700 / 3700 Other: Meal Breakfast Percent of Meal Consumed 100% Feeding Ability Independent Stool Size Small Small Stool Color Dark Red Blood Dark Red Blood Blood Tinged Stool Consistency Soft Soft Soft # Voids 1 # Bowel Movements 1 1 1 - General Appearance General appearance: cachectic EENT: ATNC - Lab 12/12/17 05:11 12/12/17 05:11 Most recent lab results Calcium 8.4 mg/dl (8.6-10.4) L 12/12/17 05:11 Phosphorus 3.4 mg/dL (2.7-4.5) 12/12/17 05:11 Magnesium 1.9 mg/dL (1.6-2.5) 12/12/17 05:11 Assessment and Plan (1) End stage renal disease Status: Chronic Comment: Had dialysis yesterday without any problems without heparin. Electrolyes and fluid status ok. GI bleed, continues to be a problem.
[2017-12-12] MEDS: traZODone HCL 150 MG TABLET PO SCH (20:50)
[2017-12-12] MEDS: CARVEDILOL 3.125 MG TABLET PO SCH (20:50)
[2017-12-12] MEDS: GABAPENTIN 100 MG CAPSULE PO SCH (20:51)
[2017-12-12] MEDS: PRAMIPEXOLE 0.25 MG TABLET PO SCH (20:51)
[2017-12-12] MEDS: 0.9 % SODIUM CHLORIDE 10 ML SYRINGE IV SCH (20:52)
[2017-12-13 04:50] LABS: Basophils # (Auto) 0 K/mcL (0.0-0.3); Basophils % (Auto) 0.3 % (0.0-2.0); Eosinophils # (Auto) 0.2 K/mcL (0.0-0.7); Eosinophils % (Auto) 2.9 % (0.0-7.0); Granulocytes % (Auto) 77.1 % (38.0-78.0); Lymphocytes # (Auto) 0.6 K/mcL (1.5-4.8); Lymphocytes % (Auto) 10.3 % (15.5-49.0); Mean Cell Volume 95.3 fL (80.0-100.0); Mean Corpuscular HGB Conc 33.8 g/dL (31.0-36.0); Mean Corpuscular Hemoglobin 32.2 pg (26.0-34.0); Monocytes # (Auto) 0.5 K/mcL (0.1-0.9); Monocytes % (Auto) 9.4 % (1.0-12.0); Platelet Count 119 K/mcL (140-440); RBC 3.14 M/mcL (4.50-5.90); Red Cell Distribution Width 16.9 % (11.5-14.5)
[2017-12-13 05:13] LABS: ALT/SGPT 17 U/l (0-40); Albumin 3.1 gm/dL (3.2-5.2); Albumin/Globulin Ratio 1.1 (1.0-2.3); Alkaline Phosphatase 167 U/L (39-117); Bilirubin,Direct 0.3 mg/dL (0.0-0.3); Blood Urea Nitrogen 39 mg/dl (8-23); Gamma Glutamyl Transpeptidase 50 U/L (8-61); Uric Acid 3.3 mg/dL (2.5-8.0)
[2017-12-13] MEDS: OMEPRAZOLE 20 MG CAPSULE PO SCH ×2 (07:48→17:30)
[2017-12-13] MEDS: VITAMIN B COMPLEX 1 CAPSULE PO SCH (08:43)
[2017-12-13] MEDS: ALLOPURINOL 300 MG TABLET PO SCH (08:43)
[2017-12-13] MEDS: 0.9 % SODIUM CHLORIDE 10 ML SYRINGE IV SCH ×2 (08:44→20:37)
[2017-12-13] MEDS ORDERED: ACETAMINOPHEN 325 MG TABLET PO PRN (09:18)
[2017-12-13] MEDS ORDERED: ONDANSETRON 4 MG/2 ML VIAL IV PRN (09:18)
--- NOTE | 2017-12-13 16:36 | Internal Med Progress Note ---
Medical - PN: Subj Patient information: Note initiated : 12/13/17 at 4:34 pm Service Date, if different from initiated Date: [] Patient: Malvin Esquivel a 87 y/o M admitted on 12/10/17 for Rectal Bleeding/ Lower GI Bleed. Chief Complaint: [] Interval history: December 10 Patient is an 87-year-old male known to me from an admission earlier this month with lower GI bleed. His history of stable end-stage renal disease on dialysis , chronic hypotension, chronic bradycardia, atrial and ventricular arrhythmia with AICD, atrial fibrillation and history of epistaxis while on anticoagulation. Old records from earlier this month are reviewed as summarized below. He was hospitalized here earlier this month with lower GI bleed. He presented with bloody bowel movements, eventually required packed red cells. He was seen by Dr. Lin, underwent endoscopy at that time. Multiple diverticula were noted, there was no fresh blood. A 4-5 millimeter polyp was snared. 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 He did well post procedure at that time, not any further bleeding and was discharged back to his care facility. Since then he has done well. He has not been on any anticoagulants, nonsteroidals nor aspirin. This morning however he developed dark red stools while at his skilled facility. He is transferred to the emergency department was found to have denice blood on rectal exam. He has not had much further rectal bleeding since he's been in the ED. Initial hemoglobin was 7.7, down from 8.7 at the time of previous discharge. Patient's being admitted for recurrent presumptive lower GI bleed. December 11 Having bloody bowel movement last night, hemoglobin dropped to 6.9 at 3:00 this morning. Receiving 10 units of packed cells. He has had 2 further [address] movements[address] Dr[address] Caro has discussed the case with his nurse, we will transfuse and supportive care for now. Patient without significant complaints, no abdominal pain, no dyspnea. December 12 Still passing some blood in bowel movements, though hemoglobin responded very nicely to 2 units and has remained stable. Received hemodialysis yesterday. No dyspnea. No abdominal pain. No nausea or vomiting, tolerating clear liquids. Dec 13 patient seen and examined. No acute overnight events. Still has very little blood in his stools, denies any abdominal pain. He was tolerating by mouth diet well, sitting comfortably during my exam, advance diet today. Order for another day. If no more blood can be discharged Pertinent ROS: Denies headache, dizziness Denies chest pain, palpitations Denies cough or shortness of breath Denies abdominal pain, nausea or vomiting. - Constitutional Vitals: Vital Signs Temp Pulse Resp BP Pulse Ox 96.5 F L 81 16 95/56 97 12/13/17 13:44 12/13/17 16:27 12/13/17 12:00 12/13/17 16:27 12/13/17 12:00 Period Temp Pulse Resp BP Sys/Tolbert Pulse Ox Last 24 Hr 96.5 F-98.4 F 58-96 16-18 93-110/47-80 96-100 Intake and Output 12/13/17 12/13/17 12/13/17 05:59 13:59 21:59 Intake Total 480 / 480 Output Total 200 / 200 Balance -200 / -200 480 / 480 Weight 144 lb 8 oz Patient Weight 12/14/17 05:59 Weight 144 lb 8 oz Intake & Output: Intake & Output 12/13/17 12/13/17 12/13/17 05:59 13:59 21:59 Intake Total 480 / 480 Output Total 200 / 200 Balance -200 / -200 480 / 480 Weight 144 lb 8 oz Intake: Oral 480 / 480 Output: Void Amount 200 / 200 Other: Meal Breakfast Percent of Meal Consumed 100% Exam: Constitutional; Afebrile, cooperative, alert, not in distress. Eyes- No icterus, , No periorbital swelling Ears- Ext ear normal, hearing normal to conversation. Neck- Midline trachea, supple Respiratory system: Air Entry equal on both sides, No crackles or wheezing, no rhonchi. CVS- Rate normal, rhythm irregular, S1,S2 heard, no gallop, no rub. 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 Medical - PN: Obj Da - Labs CBC & Chem 7: 12/13/17 04:00 12/13/17 04:00 Labs: Abnormal Lab Results 12/13/17 12/13/17 12/12/17 04:00 04:00 19:50 RBC 3.14 L Hgb 10.1 L 10.1 L Hct 29.9 L 29.9 L RDW 16.9 H Plt Count 119 L Lymph % (Auto) 10.3 L Lymph # (Auto) 0.6 L Sodium Chloride 94 L BUN 39 H Creatinine 2.7 H Calcium 8.2 L Alkaline Phosphatase 167 H Total Protein 5.8 L Albumin 3.1 L 12/12/17 12/12/17 12/12/17 12:11 05:11 05:11 RBC Hgb 10.8 L 10.5 L Hct 31.5 L 30.8 L RDW Plt Count Lymph % (Auto) Lymph # (Auto) Sodium Chloride 94 L BUN 31 H Creatinine 2.2 H Calcium 8.4 L Alkaline Phosphatase 161 H Total Protein 5.6 L Albumin 2.9 L 12/12/17 12/11/17 12/11/17 01:57 21:52 18:16 RBC Hgb 10.2 L 10.7 L 11.0 L Hct 29.5 L 31.0 L 31.8 L RDW Plt Count Lymph % (Auto) Lymph # (Auto) Sodium Chloride BUN Creatinine Calcium Alkaline Phosphatase Total Protein Albumin 12/11/17 12/11/17 12/11/17 14:09 10:28 03:10 RBC Hgb 8.7 L 8.3 L Hct 25.5 L 24.6 L RDW Plt Count Lymph % (Auto) Lymph # (Auto) Sodium 131 L Chloride 91 L BUN 59 H Creatinine 3.1 H Calcium 8.0 L Alkaline Phosphatase 157 H Total Protein 5.3 L Albumin 2.7 L 12/11/17 12/10/17 12/10/17 03:10 23:02 19:05 RBC Hgb 6.9 L* 7.5 L 7.5 L Hct 20.5 L* 22.6 L 22.7 L RDW Plt Count Lymph % (Auto) Lymph # (Auto) Sodium Chloride BUN Creatinine Calcium Alkaline Phosphatase Total Protein Albumin Meds: Medications Acetaminophen (Tylenol) 650 mg PO Q6HP PRN PRN Reason: PAIN/FEVER > 101 Allopurinol (Zylopriim) 300 mg PO DAILY [facility] Carvedilol (Coreg) 3.125 mg PO QHS [facility] Cinacalcet (Sensipar) 60 mg PO Q48H [facility] Gabapentin (Neurontin) 100 mg PO QHS [facility] Omeprazole (Prilosec) 20 mg PO BIDAC [facility] Ondansetron HCl (Zofran) 4 mg IV Q4HP PRN PRN Reason: Nausea And Vomiting Pramipexole Dihydrochloride (Mirapex) 0.5 mg PO HS [facility] Sodium Chloride (Saline Flush) 10 ml IV Q12 [facility] Trazodone HCl (Desyrel) 150 mg PO HS [facility] Vitamin B Complex (Vitamin B Complex) 1 cap PO DAILY [facility] Medical - PN: A/P - Time Spent With Patient Total time spent is greater than 50% in coordination of care (as documented) at patient's floor/unit and/or counseling patient: - Narrative A/P Narrative: 87-year-old male with a history of frequent epistaxis while on aspirin or anticoagulants, was admitted here with lower GI bleed while on aspirin earlier this month. Now re-presents with recurrent bright red blood per rectum. Lower GI bleed. likely diverticular in nature, hemoglobin is stable, status post 2 units of blood, recently had a colonoscopy done. Dr. AANND following as an outpatient End-stage renal disease. Patient missed hemodialysis Wednesday. Received HD Wednesday. Electrolytes and volume status are adequate. 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 He has backup pacing for bradycardia with a pacer/AICD in place. Plan: Continue his usual home medications. transferred to [facility] status now Daily CBC for now Medical - PN: Qual - Stroke Symptom Onset Unknown: No - VTE Deep Vein Thrombosis/Pulmonary Embolism Present on Admission: No
[2017-12-13] MEDS ORDERED: traZODone HCL 150 MG TABLET PO SCH (21:00)
[2017-12-13] MEDS ORDERED: GABAPENTIN 100 MG CAPSULE PO SCH (21:00)
[2017-12-13] MEDS ORDERED: PRAMIPEXOLE 0.25 MG TABLET PO SCH (21:00)
[2017-12-13] MEDS ORDERED: CARVEDILOL 3.125 MG TABLET PO SCH (21:00)
--- NOTE | 2017-12-13 22:14 | Nephrology Progress Note ---
Subjective Patient information: Note initiated : 12/13/17 at 10:12 pm Service Date, if different from initiated Date: [] Patient: Malvin Esquivel 87 y/o M admitted on 12/10/17 for Rectal Bleeding/ Lower GI Bleed. Chief Complaint: Rectal bleed. Has been stable. He has not seen any blood today. Objective - Vital Signs Vital signs: Vital Signs Temp Pulse Pulse Resp BP BP Pulse Ox 12/13/17 20:00 98.3 F 72 20 117/46 98 12/13/17 17:01 96.9 F L 81 102/61 12/13/17 16:57 74 113/60 12/13/17 16:50 96.6 F L 18 96 12/13/17 16:41 61 107/55 12/13/17 16:27 81 95/56 12/13/17 16:10 96 H 100/51 12/13/17 15:56 62 94/63 12/13/17 15:41 58 L 99/51 12/13/17 15:26 66 101/66 12/13/17 15:12 60 96/56 12/13/17 14:57 62 102/61 12/13/17 14:42 95 H 97/66 12/13/17 14:27 96 H 97/56 12/13/17 14:12 93 H 106/62 12/13/17 13:52 58 L 107/60 12/13/17 13:44 96.5 F L 58 L 97/62 12/13/17 12:00 97.5 F 16 100/53 97 12/13/17 09:24 97.3 F 16 93/47 100 12/12/17 23:30 98.4 F 110/80 Intake and Output 12/13/17 12/13/17 12/14/17 13:59 21:59 05:59 Intake Total 480 / 480 100 / 100 Output Total 2750 / 2750 Balance 480 / 480 -2650 / -2650 Intake: Oral 480 / 480 100 / 100 Output: Void Amount 50 / 50 Hemodialysis UF 2700 / 2700 Other: Meal Breakfast Dinner Percent of Meal Consumed 100% 50% Feeding Ability Independent # Voids 1 Weight 151 lb 12.8 oz Patient Weight 12/14/17 05:59 Weight 151 lb 12.8 oz Intake & Output: Intake & Output 12/13/17 12/13/17 12/14/17 13:59 21:59 05:59 Intake Total 480 / 480 100 / 100 Output Total 2750 / 2750 Balance 480 / 480 -2650 / -2650 Weight 151 lb 12.8 oz Intake: Oral 480 / 480 100 / 100 Output: Void Amount 50 / 50 Hemodialysis UF 2700 / 2700 Other: Meal Breakfast Dinner Percent of Meal Consumed 100% 50% Feeding Ability Independent # Voids 1 - General Appearance General appearance: cachectic EENT: ATNC Neck: no JVD Respiratory: no kyphosis Cardiology: mid-systolic murmur Gastrointestinal: normoactive bowel sounds Musculoskeletal: no deformities - Lab 12/13/17 04:00 12/13/17 04:00 Most recent lab results Calcium 8.2 mg/dl (8.6-10.4) L 12/13/17 04:00 Phosphorus 3.6 mg/dL (2.7-4.5) 12/13/17 04:00 Magnesium 2.0 mg/dL (1.6-2.5) 12/13/17 04:00 Assessment and Plan (1) End stage renal disease Status: Chronic Comment: Dialysis today without heparin. Electrolyes and fluid status ok. GI bleed, no new blood.
[2017-12-14 05:38] LABS: Basophils # (Auto) 0 K/mcL (0.0-0.3); Basophils % (Auto) 0.2 % (0.0-2.0); Eosinophils # (Auto) 0.1 K/mcL (0.0-0.7); Eosinophils % (Auto) 1.6 % (0.0-7.0); Granulocytes % (Auto) 78.4 % (38.0-78.0); Lymphocytes # (Auto) 0.5 K/mcL (1.5-4.8); Mean Cell Volume 95.2 fL (80.0-100.0); Mean Corpuscular HGB Conc 34.1 g/dL (31.0-36.0); Mean Corpuscular Hemoglobin 32.5 pg (26.0-34.0); Monocytes # (Auto) 0.6 K/mcL (0.1-0.9); Monocytes % (Auto) 10.8 % (1.0-12.0); Platelet Count 123 K/mcL (140-440); RBC 3.11 M/mcL (4.50-5.90); Red Cell Distribution Width 16.7 % (11.5-14.5)
[2017-12-14 06:01] LABS: ALT/SGPT 26 U/l (0-40); Albumin/Globulin Ratio 1.1 (1.0-2.3); Alkaline Phosphatase 191 U/L (39-117); Bilirubin,Direct 0.2 mg/dL (0.0-0.3); Blood Urea Nitrogen 25 mg/dl (8-23); Gamma Glutamyl Transpeptidase 62 U/L (8-61); Uric Acid 2.1 mg/dL (2.5-8.0)
[2017-12-14] MEDS: OMEPRAZOLE 20 MG CAPSULE PO SCH (07:34)
[2017-12-14] MEDS ORDERED: CINACALCET 30 MG TABLET PO SCH (08:00)
[2017-12-14] MEDS: 0.9 % SODIUM CHLORIDE 10 ML SYRINGE IV SCH (08:11)
[2017-12-14] MEDS ORDERED: VITAMIN B COMPLEX 1 CAPSULE PO SCH (09:00)
[2017-12-14] MEDS ORDERED: ALLOPURINOL 300 MG TABLET PO SCH (09:00)
[2017-12-14] MEDS ORDERED: FLEETS ADULT ENEMA PR ONE (10:15)
--- NOTE | 2017-12-14 12:33 | Discharge Summary ---
Medical - DS: Prov Patient information: Note initiated : 12/14/17 at 12:26 pm Service Date, if different from initiated Date: [] Patient: Malvin Esquivel 87 y/o M admitted on 12/10/17 for Rectal Bleeding/ Lower GI Bleed. Chief Complaint: [] Date of admission: 12/10/17 16:40 Discharge date: 12/14/17 Primary care physician: Junito Titus Admitting clinician: Rossy Ayala Consults: 12/10/17 14:37 Consult to Physician [CONS] Stat Comment: Consulting Provider: Rossy Ayala Reason For Exam: Physician to Consult 12/10/17 15:05 Consult to Physician [CONS] Stat Comment: Consulting Provider: Rony Caro Reason For Exam: Physician to Consult 12/10/17 17:05 Consult to Physician [CONS] Routine Comment: Consulting Provider: Junito Titus Reason For Exam: Physician to Consult Discharging clinician: Stefanie Patricia Medical - DS: Meds - Discharge Medications Active and Home Medications: Home Medications Allopurinol [Zyloprim] 300 mg PO DAILY 11/26/17 [History Confirmed 12/10/17 Last Taken 11/26/17 08:00] Carvedilol [Coreg] 3.125 mg PO QHS 11/26/17 [History Confirmed 12/10/17 Last Taken 11/25/17 20:00] Cinacalcet HCl [Sensipar] 60 mg PO .EVERY OTHER DAY 11/26/17 [History Confirmed 12/10/17 Last Taken Unknown] Gabapentin [Neurontin] 100 mg PO QHS 11/26/17 [History Confirmed 12/10/17 Last Taken 11/25/17 20:00] Omeprazole [Prilosec] 20 mg PO BIDAC 11/26/17 [History Confirmed 12/10/17 Last Taken 11/26/17 08:00] Pramipexole [Mirapex] 0.5 mg PO HS 11/26/17 [History Confirmed 12/10/17 Last Taken 11/25/17 20:00] Vit B Cmplx 3/FA/Vit C/Biotin [Vol-Care Rx Tablet] 1 each PO DAILY 11/26/17 [ History Confirmed 12/10/17 Last Taken 11/26/17 08:00] traZODone HCL [Desyrel] 150 mg PO HS 11/26/17 [History Confirmed 12/10/17 Last Taken Unknown] Psyllium Husk/Aspartame [Metamucil Fiber Singles Packet] 3.4 gm PO DAILY #30 powd.pack 11/29/17 [Rx Confirmed 12/10/17 Last Taken Unknown] Sennosides [Senna] 8.6 mg PO HS #30 tab 11/29/17 [Rx Confirmed 12/10/17 Last Taken Unknown] Medical - DS: Hosp Hospital course: Patient is an 87-year-old male with an admission earlier this month with lower GI bleed, presented to the ER with recurrent Lower GI bleed, he has a history of 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 He was hospitalized here earlier this month with lower GI bleed. He presented with bloody bowel movements, eventually required packed red cells. He was seen by Dr. Lin, underwent endoscopy at that time. Multiple diverticula were noted, there was no fresh blood. A 4-5 millimeter polyp was snared. 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 He did well post procedure at that time, not any further bleeding and was discharged back to his care facility. Since then he has done well. He has not been on any anticoagulants, nonsteroidal nor aspirin. The day of admission however he developed dark red stools while at his skilled facility. He is transferred to the emergency department was found to have denice blood on rectal exam. He has not had much further rectal bleeding since he's been in the ED. Initial hemoglobin was 7.7, down from 8.7 at the time of previous discharge. Patient's being admitted for recurrent presumptive lower GI bleed The patient hb dropped to 6.9 he next day ,and he received 2 units of blood, The case was reviewed with Dr Maciel who advised just supportive care, the patient improved and his bleeding stopped. His h/h remained stable. patient has end-stage renal disease on dialysis, which was carried out as per schedule. Dr. TITUS was involved in management of patient's chronic dialysis The patient at the time of discharge has no blood in stools, hemodynamically stable no changes are being made to his chronic home medication list. Discharge diagnosis: Lower GI bleed. - Time Spent with Patient Total time spent providing and/or coordinating discharge services: Greater than 30 minutes Medical - DS: Exam - Constitutional Vitals: Vital Signs Temp Pulse Pulse Pulse Resp BP BP 12/14/17 11:51 98.1 F 60 12 100/54 12/14/17 08:00 98.0 F 62 14 106/58 12/14/17 04:00 98.1 F 56 L 20 106/47 12/13/17 23:49 98.0 F 70 20 101/61 12/13/17 20:00 98.3 F 72 20 117/46 12/13/17 17:01 96.9 F L 81 102/61 12/13/17 16:57 74 113/60 12/13/17 16:50 96.6 F L 18 12/13/17 16:41 61 107/55 12/13/17 16:27 81 95/56 12/13/17 16:10 96 H 100/51 12/13/17 15:56 62 94/63 12/13/17 15:41 58 L 99/51 12/13/17 15:26 66 101/66 12/13/17 15:12 60 96/56 12/13/17 14:57 62 102/61 12/13/17 14:42 95 H 97/66 12/13/17 14:27 96 H 97/56 12/13/17 14:12 93 H 106/62 12/13/17 13:52 58 L 107/60 12/13/17 13:44 96.5 F L 58 L 97/62 Pulse Ox 12/14/17 11:51 97 12/14/17 08:00 97 12/14/17 04:00 95 12/13/17 23:49 99 12/13/17 20:00 98 12/13/17 17:01 12/13/17 16:57 12/13/17 16:50 96 12/13/17 16:41 12/13/17 16:27 12/13/17 16:10 12/13/17 15:56 12/13/17 15:41 12/13/17 15:26 12/13/17 15:12 12/13/17 14:57 12/13/17 14:42 12/13/17 14:27 12/13/17 14:12 12/13/17 13:52 12/13/17 13:44 Intake and Output 12/13/17 12/14/17 12/14/17 21:59 05:59 13:59 Intake Total 100 / 100 200 / 200 480 / 480 Output Total 2750 / 2750 175 / 175 Balance -2650 / -2650 200 / 200 305 / 305 Intake: Oral 100 / 100 200 / 200 480 / 480 Output: Void Amount 50 / 50 175 / 175 Hemodialysis UF 2700 / 2700 Other: Meal Dinner PB&J sandwich Breakfast Percent of Meal Consumed 50% 100% 100% Feeding Ability Independent Assist with Tray Set Up Independent Stool Size Moderate Stool Color Brown Stool Consistency Soft # Voids 1 Weight 151 lb 12.8 oz Additional comments: Constitutional; Afebrile, cooperative, alert, not in distress. Eyes- No icterus, , No periorbital swelling Ears- Ext ear normal, Neck- Midline trachea, supple Respiratory system: Air Entry equal on both sides, No crackles or wheezing, no rhonchi. CVS- Rate rhythm irregular, S1,S2 heard, no gallop, no rub. Abdomen- Soft nontender abdomen, no organomegaly, no tenderness, no guarding or rigidity, BIRD KEEPER- AOOx3, moving all extremities, no gross focal deficit noted. Medical - DS: Data Labs on day of discharge: Labs from last 24 hours 12/14/17 12/14/17 04:10 04:10 WBC 5.6 RBC 3.11 L Hgb 10.1 L Hct 29.6 L MCV 95.2 MCH 32.5 MCHC 34.1 RDW 16.7 H Plt Count 123 L MPV 8.2 Gran % 78.4 H Lymph % (Auto) 9.0 L [place] % (Auto) 10.8 Eos % (Auto) 1.6 Baso % (Auto) 0.2 Gran # 4.4 Lymph # (Auto) 0.5 L [place] # (Auto) 0.6 Eos # (Auto) 0.1 Baso # (Auto) 0 Sodium 139 Potassium 4.2 Chloride 97 Carbon Dioxide 29 Anion Gap 13.0 BUN 25 H Creatinine 2.2 H GFR Calculation 26 Glucose 109 H Uric Acid 2.1 L Calcium 8.4 L Phosphorus 2.8 Magnesium 1.9 Total Bilirubin 0.6 Direct Bilirubin 0.2 GGT 62 H AST 44 H ALT 26 Alkaline Phosphatase 191 H Lactate Dehydrogenase 153 Total Protein 5.8 L Albumin 3.0 L Globulin 2.8 Albumin/Globulin Ratio 1.1 Triglycerides 42 Medical - DS: A/P - Patient/Caregiver Discharge Instructions Activity: increase activity as tolerated Diet: Cardiac Additional Instructions: no changes have been made in your home medication list. Take all her medications as prescribed by her previous providers. If you notice any blood in the stools go back to the emergency room. Follow up with hemodialysis as per previous schedule. Follow-up with Dr. MACIEL in 2-3 weeks. Follow-up with your primary care provider in one week. Go to the emergency room if fever, chest pain, shortness of breath or any other acute concerning symptom. - Follow up Plan Follow up with: Jnuito Titus MD [Primary Care Provider] - Rony Caro MD [Physician] - Disposition: Home, Self-Care Prognosis: Fair Rehab Potential: Fair I certify that the patient requires SNF services: No Overall status at discharge: patient is back to baseline Medical - DS: Qual - VTE Deep Vein Thrombosis/Pulmonary Embolism Present on Admission: No
[2017-12-14] MEDS ORDERED: SENNOSIDES 1 TABLET PO SCH (21:00)
[2017-12-15] MEDS ORDERED: PSYLLIUM HUSK 6 GM PACKET PO SCH (09:00)
== END 2017-12-14 13:15 | disposition home or self-care (01) | DRG 377 ==
LOC: ED 11:07 → ICU 16:40 → MEDSUR 12-13 13:10
PROVIDERS: ADMIT Internal Medicine; ATTEND Internal Medicine

== ENCOUNTER 2018-04-04 09:26 | Inpatient (IN) ==
--- NOTE | 2018-04-04 09:59 | Emergency Department Note ---
Altered Mental Status HPI - General Chief Complaint: Altered Mental Status Stated Complaint: Altered Mentation Time Seen by Provider: 04/04/18 09:37 Source: EMS Mode of arrival: EMS Limitations: altered mental status - History of Present Illness HPI Narrative: Patient brought in from care home with complaint of increased weakness for the past several days according to the nursing staff. they noticed s/sx yesterday. States he always has some weakness in his right hand. His family is here with him and states that that is true does have a history of A. fib but is off blood thinners as he has had episodes of epistaxis and GI bleeds was admitted for these November. pt is a dialysis patient is scheduled for dialysis later today. He woke up this morning with more symptoms did have some slurring of speech and some right-sided facial weakness. He denies any tingling to his upper and lower extremities hand grasp appear to be equal bilaterally however. He is oriented to where he is at his birthdate who people are in the room. Appears the signs and symptoms have been present for greater than 24 hours - Related Data Home Medications Medication Instructions Recorded Confirmed Allopurinol [Zyloprim] 300 mg PO DAILY 11/26/17 04/04/18 Carvedilol [Coreg] 3.125 mg PO QHS 11/26/17 04/04/18 Cinacalcet HCl [Sensipar] 60 mg PO .EVERY OTHER DAY 11/26/17 04/04/18 Gabapentin [Neurontin] 100 mg PO QHS 11/26/17 04/04/18 Omeprazole [Prilosec] 20 mg PO BIDAC 11/26/17 04/04/18 Pramipexole [Mirapex] 0.5 mg PO HS 11/26/17 04/04/18 traZODone HCL [Desyrel] 150 mg PO HS 11/26/17 04/04/18 Baclofen [Lioresal] 10 mg PO BID 04/04/18 04/04/18 Cyclobenzaprine [Flexeril] 5 mg PO TID 04/04/18 04/04/18 Vol-Care Rx Tablet 1 tab DAILY 04/04/18 04/04/18 Previous Rx's Medication Instructions Recorded Sennosides [Senna] 8.6 mg PO HS #30 tab 11/29/17 Allergies Allergy/AdvReac Type Severity Reaction Status Date / Time No Known Drug Allergies Allergy Verified 12/10/17 11:12 Review of Systems All systems ED: reviewed and negative except as stated. Eyes: Denies: eye pain ENT ED: Denies: ear pain, throat pain Cardiovascular: Denies: chest pain, palpitations Respiratory: Denies: shortness of breath, cough Gastrointestinal: Denies: abdominal pain, nausea Genitourinary: Denies: dysuria, frequency Musculoskeletal: Denies: back pain, joint swelling Integumentary: Denies: rash Neurological: Denies: headache Psychiatric: Denies: anxiety, depression Endocrine: Denies: fatigue Hematological/Lymphatic: Denies: easy bleeding Allergic/Immunologic: Denies: facial swelling Past Medical History - Past Medical History Medical history: Reports: GI bleed, hypertension, renal disease (CRF - dialysis. ), other (Defibrillator. Scarlet fever age . Scoliosis. Diverticulitis. No PUD.). Denies: CHF Psychiatric history: Reports: no psych history Surgical history ED: Reports: other (defibrillator implanted. scope with removal of polyps on renal dialysis) - Social History smoking status: Former smoker Alcohol use: Reports: Unknown Drug use: Reports: unknown Physical Exam Limitations: altered mental status Head: atraumatic Eye: Present: normal appearance, PERRL ENT: normal exam, normal oropharynx Neck: Present: normal inspection, full ROM. Absent: trachea midline Chest: Present: normal inspection Respiratory: Present: normal lung sounds bilaterally. Absent: respiratory distress Cardiovascular: Present: regular rate, normal rhythm. Absent: bradycardia, tachycardia Abdominal: Present: soft, normal bowel sounds. Absent: distention, tenderness, guarding, rebound, rigidity Extremities: Present: normal inspection, full ROM. Absent: tenderness Back: Present: normal inspection, full ROM. Absent: tenderness Patient oriented to: Present: person, place, time Speech: Present: fluid speech Cranial nerves: EOM function (II, III, IV, ): Normal, facial sensation (V): Normal, facial palsy (VII): Normal, gag reflex (IX): Normal, spinal accessory function (XI): Normal, tongue deviation (XII): Normal Motor strength - LUE: 4/5 Motor strength - RUE: 4/5 Motor strength - LLE: 4/5 Motor strength - RLE: 4/5 Upper motor neuron exam: Babinski sign: Absent bilaterally Sensory exam upper extremity: Normal: light touch, pin prick Sensory exam lower extremity: Normal: light touch, pin prick DTR: 2+: patellar (L), patellar (R) Coma Scale Eye Opening: Spontaneous Coma Scale Motor Response: Obeys Commands Coma Scale Verbal Response: Oriented Coma Scale Total: 15 Psychiatric: Present: normal affect, normal mood. Absent: depressed, agitated Skin: Present: warm, dry, intact Course Vital Signs Pulse Rate 98 H 04/04/18 09:27 Respiratory Rate 20 04/04/18 09:27 Blood Pressure 121/84 04/04/18 09:27 Pulse Oximetry (%) 98 04/04/18 09:27 Temperature 96.6 F L 04/04/18 17:10 Pulse Rate 74 04/04/18 19:00 Respiratory Rate 16 04/04/18 16:59 Blood Pressure 104/58 04/04/18 19:00 Pulse Oximetry (%) 100 04/04/18 16:40 Altered Mental Status - MDM Narrative Medical decision making narrative: Head CT is reported negative by Dr. Quinteros. Scheduling for an MRI. pt transferred to care of Dr Sharpe - Lab Data Result diagrams: 04/04/18 10:00 04/04/18 10:00 Lab Results 04/04/18 04/04/18 04/04/18 Range/Units 10:00 10:00 10:00 WBC 7.6 (4.5-11.0) K/mcL RBC 3.48 L (4.50-5.90) M/mcL Hgb 11.3 L (13.5-16.5) g/dL Hct 34.0 L (41.0-55.0) % POC Hct 35.0 L (41.0-55.0) % MCV 97.8 (80.0-100.0) fL MCH 32.5 (26.0-34.0) pg MCHC 33.2 (31.0-36.0) g/dL RDW 16.2 H (11.5-14.5) % Plt Count 207 (140-440) K/mcL MPV 7.7 (7.4-10.4) fL Gran % 84.7 H (38.0-78.0) % Lymph % (Auto) 7.0 L (15.5-49.0) % [place] % (Auto) 6.1 (1.0-12.0) % Eos % (Auto) 1.8 (0.0-7.0) % Baso % (Auto) 0.4 (0.0-2.0) % Gran # 6.4 (1.8-8.0) K/mcL Lymph # (Auto) 0.5 L (1.5-4.8) K/mcL [place] # (Auto) 0.5 (0.1-0.9) K/mcL Eos # (Auto) 0.1 (0.0-0.7) K/mcL Baso # (Auto) 0 (0.0-0.3) K/mcL POC PT 15.2 H (11.9-14.5) sec POC INR 1.3 H (0.9-1.2) APTT 43 H (20-37) sec POC Sodium 134 (133-145) mmol/L Sodium 133 (133-145) mmol/L POC Potassium 4.5 (3.3-5.1) mmol/L Potassium 4.7 (3.3-5.1) mmol/L POC Chloride 93 L (96-108) mmol/L Chloride 93 L (96-108) mmol/L Carbon Dioxide 28 (22-30) mmol/L POC Total CO2 31 H (22-30) mmol/L Anion Gap 12.0 (8-16) POC BUN 55 H (8-23) mg/dl BUN 60 H (8-23) mg/dl Creatinine 3.5 H (0.7-1.2) mg/dl POC Creatinine 3.8 H (0.7-1.2) mg/dl GFR Calculation 15 Glucose 96 (70-105) mg/dL POC Glucose 93 (70-105) mg/dL Calcium 9.7 (8.6-10.4) mg/dl POC WB Ioniz Calcium 1.11 L (1.16-1.32) mmol/L Total Bilirubin 0.8 (0.0-1.0) mg/dL AST 13 (0-37) U/l ALT 10 (0-40) U/l Alkaline Phosphatase 118 H (39-117) U/L Troponin T (0-0.03) ng/ml Total Protein 6.6 (5.9-8.4) gm/dL Albumin 3.0 L (3.2-5.2) gm/dL Globulin 3.6 (2.2-3.7) gm/dL Albumin/Globulin Ratio 0.8 L (1.0-2.3) Urine Color Urine Appearance Urine pH (5.0-9.0) Ur Specific [place] (1.000-1.035) Urine Protein (NEG) mg/dL Urine Glucose (UA) (NEG) mg/dL Urine Ketones (NEG) mg/dL Urine Occult Blood (<0.03) mg/dL Urine Nitrate (NEG) Urine Bilirubin (NEG) mg/dL Urine Urobilinogen (NEG) mg/dL Ur Leukocyte Esterase (NEG) /uL Urine RBC (0-1) /hpf Urine WBC (0-4) /hpf Ur Squamous Epith Cells (0-4) /hpf Urine Bacteria (0) /hpf Hyaline Casts (0-2) /lpf Urine Mucus (0) /hpf Ur Culture Indicated? 04/04/18 04/04/18 Range/Units 10:00 10:55 WBC (4.5-11.0) K/mcL RBC (4.50-5.90) M/mcL Hgb (13.5-16.5) g/dL Hct (41.0-55.0) % POC Hct (41.0-55.0) % MCV (80.0-100.0) fL MCH (26.0-34.0) pg MCHC (31.0-36.0) g/dL RDW (11.5-14.5) % Plt Count (140-440) K/mcL MPV (7.4-10.4) fL Gran % (38.0-78.0) % Lymph % (Auto) (15.5-49.0) % [place] % (Auto) (1.0-12.0) % Eos % (Auto) (0.0-7.0) % Baso % (Auto) (0.0-2.0) % Gran # (1.8-8.0) K/mcL Lymph # (Auto) (1.5-4.8) K/mcL [place] # (Auto) (0.1-0.9) K/mcL Eos # (Auto) (0.0-0.7) K/mcL Baso # (Auto) (0.0-0.3) K/mcL POC PT (11.9-14.5) sec POC INR (0.9-1.2) APTT (20-37) sec POC Sodium (133-145) mmol/L Sodium (133-145) mmol/L POC Potassium (3.3-5.1) mmol/L Potassium (3.3-5.1) mmol/L POC Chloride (96-108) mmol/L Chloride (96-108) mmol/L Carbon Dioxide (22-30) mmol/L POC Total CO2 (22-30) mmol/L Anion Gap (8-16) POC BUN (8-23) mg/dl BUN (8-23) mg/dl Creatinine (0.7-1.2) mg/dl POC Creatinine (0.7-1.2) mg/dl GFR Calculation Glucose (70-105) mg/dL POC Glucose (70-105) mg/dL Calcium (8.6-10.4) mg/dl POC WB Ioniz Calcium (1.16-1.32) mmol/L Total Bilirubin (0.0-1.0) mg/dL AST (0-37) U/l ALT (0-40) U/l Alkaline Phosphatase (39-117) U/L Troponin T 0.18 H* (0-0.03) ng/ml Total Protein (5.9-8.4) gm/dL Albumin (3.2-5.2) gm/dL Globulin (2.2-3.7) gm/dL Albumin/Globulin Ratio (1.0-2.3) Urine Color Yellow Urine Appearance Hazy Urine pH 7.0 (5.0-9.0) Ur Specific [place] 1.014 (1.000-1.035) Urine Protein 100 A (NEG) mg/dL Urine Glucose (UA) Negative (NEG) mg/dL Urine Ketones Neg (NEG) mg/dL Urine Occult Blood 0.03 A (<0.03) mg/dL Urine Nitrate Neg (NEG) Urine Bilirubin Neg (NEG) mg/dL Urine Urobilinogen Neg (NEG) mg/dL Ur Leukocyte Esterase 25 A (NEG) /uL Urine RBC 8 H (0-1) /hpf Urine WBC 44 H (0-4) /hpf Ur Squamous Epith Cells 2 (0-4) /hpf Urine Bacteria 0 (0) /hpf Hyaline Casts 7 H (0-2) /lpf Urine Mucus Few (0) /hpf Ur Culture Indicated? Yes Disposition Pt seen by [employer]/PA only: No Disposition: Xfer As Inpt ([facility]) Condition: Fair
--- NOTE | 2018-04-04 10:06 | Cat Scan Report ---
History: Altered mental status, facial droop with difficulty speaking Technique: The brain was imaged without contrast at 2.5 mm intervals. Radiation exposure was diminished using dose reduction technology. Findings: There is normal mild generalized cerebral atrophy. There is no evidence of an infarct, hemorrhage or mass effect. The ventricles are normal in size allowing for the mild atrophy. There is opacification of the mid and posterior ethmoid air cells on the left side. Sphenoid sinuses are clear. Comparison with the prior exam from 02/11/16 shows the left-sided ethmoid sinusitis has become worse. The brain appears stable. Impression: Normal age-related degenerative changes with no acute abnormality detected within the brain. Severe left ethmoid sinusitis Interpreted and Authenticated by: Jama Quinteros 04/04/18
[2018-04-04 10:30] LABS: Basophils # (Auto) 0 K/mcL (0.0-0.3); Basophils % (Auto) 0.4 % (0.0-2.0); Eosinophils # (Auto) 0.1 K/mcL (0.0-0.7); Eosinophils % (Auto) 1.8 % (0.0-7.0); Granulocytes % (Auto) 84.7 % (38.0-78.0); Lymphocytes # (Auto) 0.5 K/mcL (1.5-4.8); Mean Cell Volume 97.8 fL (80.0-100.0); Mean Corpuscular HGB Conc 33.2 g/dL (31.0-36.0); Mean Corpuscular Hemoglobin 32.5 pg (26.0-34.0); Monocytes # (Auto) 0.5 K/mcL (0.1-0.9); Monocytes % (Auto) 6.1 % (1.0-12.0); Platelet Count 207 K/mcL (140-440); RBC 3.48 M/mcL (4.50-5.90); Red Cell Distribution Width 16.2 % (11.5-14.5)
[2018-04-04 10:57] LABS: ALT/SGPT 10 U/l (0-40); Albumin/Globulin Ratio 0.8 (1.0-2.3); Alkaline Phosphatase 118 U/L (39-117); Blood Urea Nitrogen 60 mg/dl (8-23)
[2018-04-04 11:45] LABS: Appearance,Urine HAZY; Bacteria,Urine 0 /hpf (0); Bilirubin,Urine NEG (NEG); Color,Urine YELLOW; Glucose,Urine (UA) NEGATIVE (NEG); Leukocyte Esterase,Urine 25 /uL (NEG); Mucus,Urine FEW /hpf (0); Protein,Urine 100 mg/dL (NEG); Specific Gravity,Urine 1.014 (1.000-1.035); Urine Blood 0.03 mg/dL (<0.03); Urine Hyaline Cast 7 /lpf (0-2); Urine RBC 8 /hpf (0-1); Urine Squamous Epithelial Cell 2 /hpf (0-4); Urine WBC 44 /hpf (0-4); Urobilinogen,Urine NEG (NEG)
[2018-04-04] MEDS: DEXTROSE 5%-1/2NS 1,000 ML IV SCH (14:38)
--- NOTE | 2018-04-04 14:38 | Internal Med History&Physical ---
Medical - H&P: HPI Patient information: Note initiated : 04/04/18 at 2:37 pm Service Date, if different from initiated Date: [] Patient: Malvin Esquivel a 87 y/o M admitted on 04/04/18 for Altered Mentation. Chief Complaint: [] lethargy History of present illness: Mr. Esquivel is a 87 year old M Patient brought in from group home with complaint of increased weakness for the past several days according to the nursing staff. they noticed s/sx yesterday. States he always has some weakness in his right hand. His family is here with him and states that that is true. Also does have a history of A. fib but is off blood thinners as he has had episodes of epistaxis and GI bleeds was admitted for these November. pt is a dialysis patient is scheduled for dialysis later today outpt but will need in patient orders if admitted here. He woke up this morning with more symptoms did have some slurring of speech and some right-sided facial weakness. He denies any tingling to his upper and lower extremities hand grasp appear to be equal bilaterally however. He is oriented to where he is at his birthdate who people are in the room. Appears the signs and symptoms have been present for greater than [address] London Vera was concerned pt had a stroke but out of therapeutic window and also pt has elevated troponin. He was planning transfer to outside facility but had also had consensus with teleneurologist that thrombolytics for acute stroke not indicated. The pt is desiring of stent for heart if needed but not CABG. He denies chest pain and EKG is unremarkable. Troponin 0.13 and not likely to represent acute [place]. I offered family option of staying here for conservative cardiac care and inpatient dialysis and they desire this. The RN at [facility] says pt has been more lethargic since initiating baclofen and flexeril on Wednesday. They held last nights PM dose but still more lethargic this weekend. She did not think was stroke but rather toxicity of new medication. ROS unobtainable: due to mental status (limited ability to give hx. Stares off blankly if not continually addressed.) - Constitutional Constitutional: Present: daytime sleepiness, lethargy, weakness - Cardiovascular Cardiovascular: Present: other (cant walk so limited exertion. wheelchair bound from spinal stenosis). Absent: chest pain, edema - Respiratory Respiratory: Present: cough (recently improved), chest congestion. Absent: dyspnea on exertion - Gastrointestinal Gastrointestinal: Present: constipation. Absent: abdominal pain, nausea, vomiting - Genitourinary Genitourinary: Present: other (almost anuric. Anderson placed for urine sample today in EMD. Dialysis dependent over 6 years.) - Musculoskeletal Musculoskeletal: Present: atrophy, numbness (legs) - Psychiatric Psychiatric: Present: other (complains of muscle aches and pains. frequent med requests) Medical - H&P: PMH Medical history: GI bleed, hypertension, renal disease (CRF - dialysis.), other (Defibrillator. Scarlet fever age . Scoliosis. Diverticulitis. No PUD.). Denies: CHF Surgical history: defibrillator, colon polyp removal Right arm dialysis fistula Pertinent family history: none Social history: lives at [facility] Functional capacity: wheelchair bound Smoking status: Former smoker Have you smoked in the last 12 months: No Drug use: none Alcohol use: none Medical - H&P: Meds Home Medications Medication Instructions Recorded Confirmed Type Allopurinol [Zyloprim] 300 mg PO DAILY 11/26/17 04/04/18 History Carvedilol [Coreg] 3.125 mg PO QHS 11/26/17 04/04/18 History Cinacalcet HCl [Sensipar] 60 mg PO .EVERY OTHER DAY 11/26/17 04/04/18 History Gabapentin [Neurontin] 100 mg PO QHS 11/26/17 04/04/18 History Omeprazole [Prilosec] 20 mg PO BIDAC 11/26/17 04/04/18 History Pramipexole [Mirapex] 0.5 mg PO HS 11/26/17 04/04/18 History traZODone HCL [Desyrel] 150 mg PO HS 11/26/17 04/04/18 History Sennosides [Senna] 8.6 mg PO HS #30 tab 11/29/17 04/04/18 Rx Baclofen [Lioresal] 10 mg PO BID 04/04/18 04/04/18 History Cyclobenzaprine [Flexeril] 5 mg PO TID 04/04/18 04/04/18 History Vol-Care Rx Tablet 1 tab DAILY 06/11/18 06/11/18 History Allergies Allergy/AdvReac Type Severity Reaction Status Date / Time No Known Drug Allergies Allergy Verified 12/10/17 11:12 Medical - H&P: Exam - Constitutional Vitals: Temp Pulse Resp BP Pulse Ox 98.4 F 59 L 16 106/59 91 04/04/18 13:09 04/04/18 13:09 04/04/18 13:09 04/04/18 13:09 04/04/18 13:09 General appearance: average body habitus, no acute distress - Head Head exam: Present: atraumatic - Eye Eye exam: Present: PERRL. Absent: EOMI (required multiple requests and stimulation but tracking consensual. Didnt complete the verticle follow but appears to be intact nerve function) - Neck Neck exam: Present: full ROM. Absent: tenderness - Respiratory Respiratory exam: Present: normal respiratory exam, decreased breath sounds ( bases) - Cardiovascular Cardiovascular exam: Present: bradycardia, irregular rhythm. Absent: systolic murmur - GI/Abdominal GI/Abdominal exam: Present: normal bowel sounds, soft, hypoactive bowel sounds, tenderness (minimal in bilat lower quadrants). Absent: rebound, rigid - Expanded GI/Abdominal Exam GI/Abdominal exam: Absent: ascites - Extremities Exam Extremities exam: Present: calf tenderness. Absent: pedal edema, tenderness, Dinora's sign Additional comments: atrophy both calves and ankles limited ROM - Neurological Exam Neurological exam: Present: alert. Absent: oriented X3 (oriented to person and [facility] but not date or year) - Expanded Neurological Exam Neurological exam expanded: Present: receptive aphasia (repeated questioning needed.) Speech: Present: slurred Neuro motor strength exam: LUE: 4, RUE: 4, LLE: 0, RLE: 0 Coma Scale Eye Opening: To Voice Coma Scale Motor Response: Obeys Commands Coma Scale Verbal Response: Confused Coma Scale Total: 13 - Psychiatric Psychiatric exam: Present: flat affect Medical - H&P: Reslt - Labs CBC & Chem 7: 04/04/18 10:00 04/04/18 10:00 Labs: Short CBC 04/04/18 Range/Units 10:00 WBC 7.6 (4.5-11.0) K/mcL Hgb 11.3 L (13.5-16.5) g/dL Hct 34.0 L (41.0-55.0) % Plt Count 207 (140-440) K/mcL BMP 04/04/18 10:00 Sodium 133 Potassium 4.7 Chloride 93 L Carbon Dioxide 28 BUN 60 H Creatinine 3.5 H Glucose 96 Calcium 9.7 Cardiac Enzymes 04/04/18 Range/Units 10:00 Troponin T 0.18 H* (0-0.03) ng/ml Liver Function 04/04/18 Range/Units 10:00 Total Bilirubin 0.8 (0.0-1.0) mg/dL AST 13 (0-37) U/l ALT 10 (0-40) U/l Alkaline Phosphatase 118 H (39-117) U/L Albumin 3.0 L (3.2-5.2) gm/dL Urine 04/04/18 Range/Units 10:55 Urine Color Yellow Urine Appearance Hazy Urine pH 7.0 (5.0-9.0) Ur Specific [place] 1.014 (1.000-1.035) Urine Protein 100 A (NEG) mg/dL Urine Glucose (UA) Negative (NEG) mg/dL - EKG Data -: EKG Interpreted by Myself - EKG Data Prior EKG available for review: yes When compared to previous EKG: there is no significant change EKG comments: 04/04/18 14:54 afib with slow ventricular response. no acute sttw changes Medical - H&P: A/P (1) Toxic encephalopathy Current visit: Yes Status: Acute likely toxic effect of flexeril and baclofen. Will hold dose, dialyze and gently hydrate while not alert till taking po. (2) Atrial fibrillation with slow ventricular response Current visit: No Status: Chronic stable. Troponin unlikely represent ACS (3) End stage renal disease Problem details: Dialysis today without heparin. Electrolyes and fluid status ok. GI bleed, no new blood. Current visit: No Status: Chronic dialysis today as planned. (4) TIA (transient ischemic attack) Current visit: Yes Status: Acute pt already improved. Unable to examine real well as toxic effect is at least partially impacting pts presentation. doubt TIA. hemodynamics stable. Bilateral arm and hand function and face symmetric once pt follows commands. Tongue deviation min to right. - Narrative A/P Narrative: 70 min spent in evaluation and coordination of care for this patient today. Medical - H&P: Qual - Stroke Symptom Onset Unknown: No - VTE Deep Vein Thrombosis/Pulmonary Embolism Present on Admission: No
[2018-04-04] MEDS: 0.9 % SODIUM CHLORIDE 10 ML SYRINGE IV SCH ×2 (14:39→21:42)
[2018-04-04] MEDS ORDERED: HALOPERIDOL LACTATE 5 MG/ML VIAL IV ONE (20:33)
[2018-04-04] MEDS: HEPARIN 5,000 UNIT/ML VIAL SQ SCH (20:50)
[2018-04-04] MEDS: CARVEDILOL 3.125 MG TABLET PO SCH (20:51)
[2018-04-04] MEDS: SENNOSIDES 1 TABLET PO SCH (20:59)
[2018-04-04] MEDS ORDERED: GABAPENTIN 100 MG CAPSULE PO SCH (21:00)
[2018-04-04] MEDS ORDERED: traZODone HCL 150 MG TABLET PO SCH (21:00)
[2018-04-04] MEDS ORDERED: PRAMIPEXOLE 0.25 MG TABLET PO SCH (21:00)
[2018-04-04] MEDS ORDERED: ASPIRIN 81 MG TAB.CHEW CHEWED ONE (21:01)
[2018-04-05] MEDS: DEXTROSE 5%-1/2NS 1,000 ML IV SCH ×2 (03:10→10:57)
[2018-04-05] MEDS: 0.9 % SODIUM CHLORIDE 10 ML SYRINGE IV SCH ×3 (05:52→23:41)
[2018-04-05] MEDS ORDERED: CINACALCET 30 MG TABLET PO SCH (08:00)
[2018-04-05] MEDS ORDERED: ALLOPURINOL 300 MG TABLET PO SCH (09:00)
[2018-04-05 09:31] LABS: Basophils # (Auto) 0 K/mcL (0.0-0.3); Basophils % (Auto) 0.3 % (0.0-2.0); Eosinophils # (Auto) 0.1 K/mcL (0.0-0.7); Eosinophils % (Auto) 0.9 % (0.0-7.0); Lymphocytes # (Auto) 0.6 K/mcL (1.5-4.8); Lymphocytes % (Auto) 10.2 % (15.5-49.0); Mean Cell Volume 99.6 fL (80.0-100.0); Mean Corpuscular Hemoglobin 32.8 pg (26.0-34.0); Monocytes # (Auto) 0.5 K/mcL (0.1-0.9); Monocytes % (Auto) 7.6 % (1.0-12.0); Platelet Count 192 K/mcL (140-440); RBC 3.46 M/mcL (4.50-5.90); Red Cell Distribution Width 15.9 % (11.5-14.5)
[2018-04-05 09:54] LABS: ALT/SGPT 9 U/l (0-40); Albumin 3.3 gm/dL (3.2-5.2); Albumin/Globulin Ratio 0.9 (1.0-2.3); Alkaline Phosphatase 114 U/L (39-117); Bilirubin,Direct 0.4 mg/dL (0.0-0.3); Blood Urea Nitrogen 44 mg/dl (8-23); Gamma Glutamyl Transpeptidase 55 U/L (8-61)
[2018-04-05] MEDS: ASPIRIN 81 MG TAB.CHEW PO SCH (10:54)
[2018-04-05] MEDS: OMEPRAZOLE 20 MG CAPSULE PO SCH ×2 (10:54→18:06)
[2018-04-05] MEDS: ALLOPURINOL 300 MG TABLET PO SCH (10:54)
[2018-04-05] MEDS: HEPARIN 5,000 UNIT/ML VIAL SQ SCH ×2 (10:55→21:12)
--- NOTE | 2018-04-05 14:44 | Internal Med Progress Note ---
Medical - PN: Subj Patient information: Note initiated : 04/05/18 at 2:42 pm Service Date, if different from initiated Date: [] Patient: Malvin Esquivel 87 y/o M admitted on 04/04/18 for Altered Mentation. Chief Complaint: [] Interval history: Last evening after 40 minutes of dialysis the patient became wide-awake in contrast to his initial lethargy upon exam in the emergency department. Patient was agitated and talking to himself. He could be redirected to stop picking at his IV or at his own skin but continued to talk with pressured speech to himself. He could be questioned and some of his answers seemed quite oriented. He did not have unilateral facial droop or extremity dysfunction. He has the well-documented bilateral lower extremity dysfunction. He was also noted at that time to have ulcerations on his feet and an area of dry necrosis on the right lateral dorsal foot. Patient was given 2 mg of Haldol and reevaluated this morning. He is accompanied by his daughter - Constitutional Vitals: Vital Signs Temp Pulse Resp BP Pulse Ox 97.7 F 68 11 L 101/52 95 04/05/18 11:59 04/05/18 11:59 04/05/18 12:44 04/05/18 11:59 04/05/18 11:59 Period Temp Pulse Resp BP Sys/Tolbert Pulse Ox Last 24 Hr 96.6 F-100.0 F 25-100 11-27 101-128/49-79 60-100 Intake and Output 04/05/18 04/05/18 04/05/18 05:59 13:59 21:59 Intake Total 1000 / 1000 Output Total 50 / 50 Balance -50 / -50 1000 / 1000 Intake & Output: Intake & Output 04/05/18 04/05/18 04/05/18 05:59 13:59 21:59 Intake Total 1000 / 1000 Output Total 50 / 50 Balance -50 / -50 1000 / 1000 Intake: IV 1000 / 1000 Dextrose 5%-1/2Ns IV Solution 1 1000 / 1000 ,000 ml @ 75 mls/hr IV .[id number] [facility] Rx#:[id number] Output: Urine Catheter Amount 50 / 50 Other: Stool Size Smear # of times incontinent of 1 Bowels - Respiratory Respiratory exam: Present: normal respiratory exam, CTAB - Cardiovascular Cardiovascular exam: Present: normal rate and rhythm, irregular rhythm - Extremities Exam Additional comments: Patient has loss of movement in his feet. He denies pain there is a 3 x 2 cm rhomboid-shaped necrotic eschar on his right dorsal lateral foot. Between the toes there is some skin breakdown and foul odor - Psychiatric Psychiatric exam: Present: agitated Medical - PN: Obj Da - Labs CBC & Chem 7: 04/05/18 08:52 04/05/18 08:52 Labs: Abnormal Lab Results 04/05/18 04/05/18 04/04/18 08:52 08:52 10:55 RBC 3.46 L Hgb 11.4 L Hct 34.5 L POC Hct RDW 15.9 H Gran % 81.0 H Lymph % (Auto) 10.2 L Lymph # (Auto) 0.6 L POC PT POC INR APTT POC Chloride Chloride 93 L POC Total CO2 POC BUN BUN 44 H Creatinine 2.2 H POC Creatinine Uric Acid 2.0 L POC WB Ioniz Calcium Direct Bilirubin 0.4 H Alkaline Phosphatase Troponin T Albumin Albumin/Globulin Ratio 0.9 L Urine Protein 100 A Urine Occult Blood 0.03 A Ur Leukocyte Esterase 25 A Urine RBC 8 H Urine WBC 44 H Hyaline Casts 7 H 04/04/18 04/04/18 04/04/18 10:00 10:00 10:00 RBC Hgb Hct POC Hct 35.0 L RDW Gran % Lymph % (Auto) Lymph # (Auto) POC PT 15.2 H POC INR 1.3 H APTT 43 H POC Chloride 93 L Chloride 93 L POC Total CO2 31 H POC BUN 55 H BUN 60 H Creatinine 3.5 H POC Creatinine 3.8 H Uric Acid POC WB Ioniz Calcium 1.11 L Direct Bilirubin Alkaline Phosphatase 118 H Troponin T 0.18 H* Albumin 3.0 L Albumin/Globulin Ratio 0.8 L Urine Protein Urine Occult Blood Ur Leukocyte Esterase Urine RBC Urine WBC Hyaline Casts 04/04/18 10:00 RBC 3.48 L Hgb 11.3 L Hct 34.0 L POC Hct RDW 16.2 H Gran % 84.7 H Lymph % (Auto) 7.0 L Lymph # (Auto) 0.5 L POC PT POC INR APTT POC Chloride Chloride POC Total CO2 POC BUN BUN Creatinine POC Creatinine Uric Acid POC WB Ioniz Calcium Direct Bilirubin Alkaline Phosphatase Troponin T Albumin Albumin/Globulin Ratio Urine Protein Urine Occult Blood Ur Leukocyte Esterase Urine RBC Urine WBC Hyaline Casts Meds: Medications Allopurinol (Zylopriim) 150 mg PO DAILY [facility] Last Admin: 04/05/18 10:54 Dose: 150 mg Aspirin (Aspirin) 162 mg PO DAILY [facility] Last Admin: 04/05/18 10:54 Dose: 162 mg Carvedilol (Coreg) 3.125 mg PO QHS [facility] Last Admin: 04/04/18 20:51 Dose: 3.125 mg Cinacalcet (Sensipar) 60 mg PO Q48H [facility] Last Admin: 04/05/18 10:54 Dose: 60 mg Gabapentin (Neurontin) 100 mg PO QHS [facility] Last Admin: 04/04/18 20:52 Dose: 100 mg Heparin Sodium (Porcine) (Heparin) 5,000 unit SQ Q12 [facility] Last Admin: 04/05/18 10:55 Dose: 5,000 unit Dextrose/Sodium Chloride (Dextrose 5%-1/2ns Iv Solution) 1,000 mls @ 50 mls/hr IV .Q20H [facility] Last Admin: 04/05/18 10:57 Dose: 50 mls/hr Omeprazole (Prilosec) 20 mg PO BIDAC [facility] Last Admin: 04/05/18 10:54 Dose: 20 mg Pramipexole Dihydrochloride (Mirapex) 0.5 mg PO [facility] Last Admin: 04/04/18 20:58 Dose: 0.5 mg Senna (Senokot) 1 tab PO [facility] Last Admin: 04/04/18 20:59 Dose: 1 tab Sodium Chloride (Saline Flush) 10 ml IV Q8 [facility] Last Admin: 04/05/18 13:18 Dose: 10 ml Trazodone HCl (Desyrel) 150 mg PO [facility] Last Admin: 04/04/18 20:58 Dose: 150 mg - EKG Data -: EKG Interpreted by Myself (A. fib no acute ST-T wave abnormality) Medical - PN: A/P - Time Spent With Patient Total time spent is greater than 50% in coordination of care (as documented) at patient's floor/unit and/or counseling patient: Greater than 35 minutes (1) Toxic encephalopathy Status: Acute Assessment and plan: Improved with dialysis but now patient is delirious there is some suspicion for possible expressive aphasia S CVA but I believe this will clear with time away from Flexeril and baclofen Current Visit: Yes (2) Atrial fibrillation with slow ventricular response Status: Chronic Assessment and plan: Patient without signs or symptoms of acute MS. Troponin mildly elevated but but not beyond what would be expected with his renal failure Current Visit: No (3) End stage renal disease Problem details: Dialysis today without heparin. Electrolyes and fluid status ok. GI bleed, no new blood. Status: Chronic Assessment and plan: Continue dialysis the patient's uric acid was only 2.3 so I decreased his allopurinol 150 mg daily Current Visit: No (4) TIA (transient ischemic attack) Problem details: Working diagnosis is that he has a toxic encephalopathy and now resolving but still delirious if further persistence of expressive aphasia consider additional CT scan. Unfortunately he has a pacemaker and MRI is not possible Status: Acute Current Visit: Yes (5) Foot ulcer with necrosis of muscle Status: Acute Assessment and plan: Wound care consult requested Current Visit: Yes Medical - PN: Qual - Stroke Symptom Onset Unknown: No - VTE Deep Vein Thrombosis/Pulmonary Embolism Present on Admission: No
[2018-04-05] MEDS ORDERED: ACETAMINOPHEN 325 MG TABLET PO PRN (16:02)
--- NOTE | 2018-04-05 16:13 | Nephrology Progress Note ---
Subjective Patient information: Note initiated : 04/05/18 at 4:10 pm Service Date, if different from initiated Date: [] Patient: Malvin Esquivel 87 y/o M admitted on 04/04/18 for Altered Mentation. Chief Complaint: [] Mental status is better compared to yesterday. Still somewhat sleepy. Objective - Vital Signs Vital signs: Vital Signs Temp Pulse Pulse Resp BP BP Pulse Ox 04/05/18 12:44 11 L 04/05/18 12:38 12 04/05/18 11:59 97.7 F 68 13 101/52 95 04/05/18 11:04 13 112/55 04/05/18 10:02 16 120/53 04/05/18 08:00 98.4 F 73 17 120/53 100 04/05/18 04:00 98.3 F 72 18 112/76 95 04/05/18 01:36 98.8 F 22 04/05/18 00:00 100.0 F H 86 24 H 117/65 98 04/04/18 20:35 100 H 117/65 04/04/18 20:15 84 118/65 04/04/18 20:00 99.1 F H 79 82 22 119/55 124/72 96 04/04/18 19:30 84 127/79 04/04/18 19:00 74 104/58 04/04/18 18:45 74 120/51 04/04/18 18:31 86 12 115/71 66 L 04/04/18 18:30 79 115/71 04/04/18 18:25 98.6 F 84 25 H 117/65 92 04/04/18 18:16 25 L 24 H 116/55 60 L 04/04/18 18:15 73 116/55 04/04/18 18:01 26 H 120/63 04/04/18 18:00 76 120/63 04/04/18 17:46 40 L 128/69 66 L 04/04/18 17:45 74 128/69 04/04/18 17:31 27 H 128/49 04/04/18 17:30 73 128/49 04/04/18 17:16 12 108/56 04/04/18 17:10 96.6 F L 65 111/50 04/04/18 17:01 13 111/50 04/04/18 16:59 16 04/04/18 16:46 13 112/57 04/04/18 16:40 96.6 F L 100 04/04/18 16:31 13 110/54 04/04/18 16:16 17 116/54 Intake and Output 04/05/18 04/05/18 04/05/18 05:59 13:59 21:59 Intake Total 1000 / 1000 Output Total 50 / 50 225 / 225 Balance -50 / -50 1000 / 1000 -225 / -225 Intake: IV 1000 / 1000 Dextrose 5%-1/2Ns IV Solution 1 1000 / 1000 ,000 ml @ 75 mls/hr IV .[id number] [facility] Rx#:[id number] Output: Urine Catheter Amount 50 / 50 225 / 225 Other: Stool Size Smear Small Stool Color Brown Stool Consistency Soft # of times incontinent of 1 1 Bowels Intake & Output: Intake & Output 04/05/18 04/05/18 04/05/18 05:59 13:59 21:59 Intake Total 1000 / 1000 Output Total 50 / 50 225 / 225 Balance -50 / -50 1000 / 1000 -225 / -225 Intake: IV 1000 / 1000 Dextrose 5%-1/2Ns IV Solution 1 1000 / 1000 ,000 ml @ 75 mls/hr IV .[id number] [facility] Rx#:[id number] Output: Urine Catheter Amount 50 / 50 225 / 225 Other: Stool Size Smear Small Stool Color Brown Stool Consistency Soft # of times incontinent of 1 1 Bowels - General Appearance General appearance: cachectic EENT: mucous membranes dry Neck: no JVD Cardiology: mid-systolic murmur Gastrointestinal: hypoactive bowel sounds Neurologic: upper extremity weakness - Lab 04/05/18 08:52 04/05/18 08:52 Most recent lab results Calcium 9.5 mg/dl (8.6-10.4) 04/05/18 08:52 Phosphorus 2.9 mg/dL (2.7-4.5) 04/05/18 08:52 Magnesium 2.0 mg/dL (1.6-2.5) 04/05/18 08:52 Assessment and Plan (1) End stage renal disease Status: Chronic Comment: Dialysis again today with minimal heparin. This is to see if his menation will get better. Electrolyes and fluid status ok. Minimize all pain meds/sedatives. Hx of GI bleed, so I will not use NSAIDs. Lesions in his feet, look like target lesions with low blood flow.
[2018-04-05] MEDS ORDERED: VASOPRESSIN IV SCH (16:15)
[2018-04-05] MEDS ORDERED: DEXTROSE 5% IV SCH (16:15)
[2018-04-05] MEDS ORDERED: WATER IV SCH (16:15)
--- NOTE | 2018-04-05 18:15 | General Surgery Consult Note ---
History of Present Illness Patient information: Note initiated : 04/05/18 at 6:10 pm Service Date, if different from initiated Date: [] Patient: Malvin Esquivel 87 y/o M admitted on 04/04/18 for Altered Mentation. Chief Complaint: [] Consult date: 04/05/18 Requesting physician: Troy Sterling (Wound care Lesions feet) History of present illness: I saw this patient along with Azul Rn in ICU Room 120 /A 88 / M Resident of [facility]. Admitted with Altered Mental status, Encephalopathy and ESRD on HD Multiple associated co-morbid medical conditions. Currently sleepy and undergoing HD. Wound care consulted for dry black adherent eschar to both feet between toes and along lateral aspect of Right 5 th toe MPJ area. I have reviewed notes of ER, Hospitalist and Nephrology Physicians. Medications and Allergies Home Medications Medication Instructions Recorded Confirmed Type Gabapentin [Neurontin] 100 mg PO QHS 11/26/17 04/04/18 History Omeprazole [Prilosec] 20 mg PO BIDAC 11/26/17 04/04/18 History Pramipexole [Mirapex] 0.5 mg PO HS 11/26/17 04/04/18 History traZODone HCL [Desyrel] 150 mg PO HS 11/26/17 04/04/18 History Sennosides [Senna] 8.6 mg PO HS #30 tab 11/29/17 04/04/18 Rx Acetaminophen [Tylenol] 650 mg PO Q4-6HP PRN tablet 04/07/18 Rx DIPHENHYDRamine (PP) [Benadryl Daisha 25 mg PO Q6HP PRN #200 ml 04/07/18 Rx (Pp)] LORazepam [Ativan] 0.5 mg PO Q2HP PRN #100 tab 04/07/18 Rx Lactoperoxi/Gluc Oxid/Pot Thio 1 each TOPICAL PRN PRN #60 gel..ea. 04/07/18 Rx [Biotene] Ondansetron HCl [Zofran ODT] 4 mg SL Q4HP PRN #30 tab 04/07/18 Rx morphine SULFATE [Morphine Sulfate] 5 mg PO Q2HP PRN #200 ml 04/07/18 Rx Allergies Allergy/AdvReac Type Severity Reaction Status Date / Time No Known Drug Allergies Allergy Verified 12/10/17 11:12 Exam Temp Pulse Resp BP Pulse Ox 97.0 F 70 13 100/49 100 04/05/18 16:03 04/05/18 16:03 04/05/18 16:14 04/05/18 16:03 04/05/18 16:03 - General physical appearance well developed, well nourished, no distress - Eyes PERRL, normal ocular movement - ENT normal pinna, normal nares, normal mucosa, no congestion - Head Head exam IM: Present: atraumatic, normal inspection, normocephalic - Neck no masses, no bruits, trachea midline, no venous distension - Cardiovascular Cardiovascular exam IM: Present: irregular rhythm Type of murmur IM: Present: systolic - Respiratory dullness: bilateral (Diminished air entry lung bases) - Abdomen Abdomen: Present: soft, non tender, bowel sounds - Integumentary Present: other (Dry adherent black eschar between toes 3-5 bilaterally and along lateral aspect of right 5 to toe MPJ) - Neurologic Present: other (Patient drowsy. Detailed exam NOT done) - Musculoskeletal Present: other - Psychiatric Present: other (Could NOT be ascertained.) Results - Labs 04/05/18 08:52 04/06/18 03:55 Abnormal lab results 04/05/18 04/05/18 Range/Units 08:52 08:52 RBC 3.46 L (4.50-5.90) M/mcL Hgb 11.4 L (13.5-16.5) g/dL Hct 34.5 L (41.0-55.0) % RDW 15.9 H (11.5-14.5) % Gran % 81.0 H (38.0-78.0) % Lymph % (Auto) 10.2 L (15.5-49.0) % Lymph # (Auto) 0.6 L (1.5-4.8) K/mcL Chloride 93 L (96-108) mmol/L BUN 44 H (8-23) mg/dl Creatinine 2.2 H (0.7-1.2) mg/dl Uric Acid 2.0 L (2.5-8.0) mg/dL Direct Bilirubin 0.4 H (0.0-0.3) mg/dL Albumin/Globulin Ratio 0.9 L (1.0-2.3) Diabetes panel 04/05/18 Range/Units 08:52 Sodium 134 (133-145) mmol/L Potassium 4.2 (3.3-5.1) mmol/L Chloride 93 L (96-108) mmol/L Carbon Dioxide 29 (22-30) mmol/L BUN 44 H (8-23) mg/dl Creatinine 2.2 H (0.7-1.2) mg/dl Glucose 85 (70-105) mg/dL Calcium 9.5 (8.6-10.4) mg/dl AST 14 (0-37) U/l ALT 9 (0-40) U/l Alkaline Phosphatase 114 (39-117) U/L Total Protein 6.8 (5.9-8.4) gm/dL Albumin 3.3 (3.2-5.2) gm/dL Triglycerides 92 (<150) mg/dl Calcium panel 04/05/18 Range/Units 08:52 Calcium 9.5 (8.6-10.4) mg/dl Phosphorus 2.9 (2.7-4.5) mg/dL Albumin 3.3 (3.2-5.2) gm/dL Pituitary panel 04/05/18 Range/Units 08:52 Sodium 134 (133-145) mmol/L Potassium 4.2 (3.3-5.1) mmol/L Chloride 93 L (96-108) mmol/L Carbon Dioxide 29 (22-30) mmol/L BUN 44 H (8-23) mg/dl Creatinine 2.2 H (0.7-1.2) mg/dl Glucose 85 (70-105) mg/dL Calcium 9.5 (8.6-10.4) mg/dl Adrenal panel 04/05/18 Range/Units 08:52 Sodium 134 (133-145) mmol/L Potassium 4.2 (3.3-5.1) mmol/L Chloride 93 L (96-108) mmol/L Carbon Dioxide 29 (22-30) mmol/L BUN 44 H (8-23) mg/dl Creatinine 2.2 H (0.7-1.2) mg/dl Glucose 85 (70-105) mg/dL Calcium 9.5 (8.6-10.4) mg/dl Total Bilirubin 0.9 (0.0-1.0) mg/dL AST 14 (0-37) U/l ALT 9 (0-40) U/l Alkaline Phosphatase 114 (39-117) U/L Total Protein 6.8 (5.9-8.4) gm/dL Albumin 3.3 (3.2-5.2) gm/dL All other labs normal. Assessment and Plan (1) Altered mental status Status: Acute Priority: High (2) Foot ulcer with necrosis of muscle Assessment: Patient has Clinical features of PAD. Vaso occlusive. Dry black adherent eschar between toes both feet and dry adherent eschar lateral aspect of Right 5 th toe MPJ Non palpable pedal pulses. Plan : Agree with ongoing management of medial problems. Conservative management from wound care point of view as discussed with nursing staff. Dry gauze between toes over Bacitracin ointment and Bacitracin ointment and Mepilex bordered foam over Right 5 the lateral aspect wound . Will follow PRN whilst in hospital. CALL wound center for follow up when patient is ready for discharge. 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
[2018-04-05] MEDS: SENNOSIDES 1 TABLET PO SCH (21:12)
[2018-04-05] MEDS: CARVEDILOL 3.125 MG TABLET PO SCH (21:12)
[2018-04-05] MEDS: 0.9 % SODIUM CHLORIDE 250 ML IV SCH (21:45)
[2018-04-06] MEDS: 0.9 % SODIUM CHLORIDE 250 ML IV SCH (04:51)
[2018-04-06] MEDS: 0.9 % SODIUM CHLORIDE 10 ML SYRINGE IV SCH ×4 (04:52→20:14)
[2018-04-06] MEDS: DEXTROSE 5%-1/2NS 1,000 ML IV SCH (05:34)
[2018-04-06 05:54] LABS: ALT/SGPT 9 U/l (0-40); Albumin/Globulin Ratio 0.9 (1.0-2.3); Alkaline Phosphatase 112 U/L (39-117); Bilirubin,Direct 0.3 mg/dL (0.0-0.3); Blood Urea Nitrogen 19 mg/dl (8-23); Gamma Glutamyl Transpeptidase 52 U/L (8-61); Uric Acid 1.4 mg/dL (2.5-8.0)
[2018-04-06] MEDS: OMEPRAZOLE 20 MG CAPSULE PO SCH ×2 (06:50→18:38)
--- NOTE | 2018-04-06 07:21 | Consultation ---
DATE OF CONSULTATION: 04/04/2018 REFERRING PHYSICIAN: Kevin Sterling MD REASON FOR CONSULTATION: End-stage renal disease and change in mental status. The patient is an 87-year-old gentleman with past medical history significant for end-stage renal disease on hemodialysis Mondays, Wednesdays, and Fridays at [facility]. He was brought in because of progressive weakness in the past several days along with recent change in mental status. He had more symptoms with some slurring of speech and right-sided facial weakness as well. He has tingling in his upper and lower extremities but can grasp hands bilaterally. Because of the progressive nature of his weakness he was brought into the hospital. PAST MEDICAL HISTORY: Significant for: 1. End-stage renal disease on hemodialysis. Dialysis is on Mondays, Wednesdays, and Fridays at [facility]. 2. History of hypertension. 3. History of GI bleed. He is so sensitive that he would develop bleeding with even an aspirin 81 mg once daily. He also had several episodes of epistaxis. 4. He has a defibrillator placed. 5. Right arm AV fistula. SOCIAL HISTORY: The patient lives at [facility]. He is wheelchair bound. He used to smoke but quit several years ago. No history of alcohol or drug use. MEDICATIONS ON ADMISSION: 1. Allopurinol 300 mg daily. 2. Carvedilol 3.125 mg at night. 3. Sensipar 60 mg every other day. 4. Gabapentin 100 mg at night. 5. Omeprazole 20 mg b.i.d. 6. Mirapex 0.5 mg at night. 7. Trazodone 50 mg at night. 8. Baclofen 10 mg twice daily. 9. Flexeril 5 mg p.o. 3 times daily. ALLERGIES: No known drug allergies. PHYSICAL EXAMINATION: GENERAL: The patient is sleepy, oriented x1; he falls asleep between conversations. VITAL SIGNS: Blood pressure is 100/110 systolic with a diastolic in the 50s, pulse rates have been in the 70s, respiration rate of 13, temperature 97.7 with a pulse oximetry of 95%. HEENT: Pupils are reactive to light. External auditory canal appears normal. Oral cavity shows normal mucosa. NECK: Supple. No jugular venous distention. No lymphadenopathy. No thyromegaly and no carotid bruits. LUNGS: Decreased air entry bilaterally. Rales heard in both bases. CARDIAC: S1 and S2 heard. No S3 or S4. He has a II/ systolic murmur. ABDOMEN: Soft and nontender. EXTREMITIES: Did not show evidence of edema. LABORATORY DATA: White count is 7.6 and hemoglobin of 11.3 and a platelet count of 207, sodium 134, potassium 4.5, chloride of 93, CO2 28, BUN of 54 with a creatinine of 3.5. ASSESSMENT AND PLAN: 1. Change in mental status. Question whether this is related to baclofen and Flexeril or other pain medications. He will have hemodialysis today and see how he does. A CT scan of the head done in the emergency room was unremarkable. 2. End-stage renal disease. He will have his hemodialysis today and then we will reassess. 3. CHF. He is usually volume overloaded. He does have a history of congestive heart failure. We will take out 2 to 3 liters of fluid as tolerated. MIREILLE:marvin Job ID: [id number] Doc ID: [id number] Junito Titus MD
[2018-04-06] MEDS ORDERED: AMOXICILLIN/POTASSIUM CLAV 500 MG TABLET PO SCH (08:00)
--- NOTE | 2018-04-06 10:43 | Internal Med Progress Note ---
Medical - PN: Subj Patient information: Note initiated : 04/06/18 at 10:42 am Service Date, if different from initiated Date: [] Patient: Malvin Esquivel 87 y/o M admitted on 04/04/18 for Altered Mentation. Chief Complaint: [] Interval history: Pt seen examined, no acute overnight issues, pt more awake today but still has some confusion. Daugther by the bedside who also notes improvement Initially plan was to discharge him back to rehab today, however it seems he is still somewhat confused, he is bed bound and his condition has worsened over the last few months to years , he is at baseline, just abl to use his hands, which I beileve is secondary to a spinal process This AM he knew he was in the hospital, knew that dr jaimes was his doctor, and aware of the year. I reviewed his Head CT which showed severe sinusitis, will plan to treat this and see if there is any improvement in the mental status Also will try to get in touch with the POA to determine the goals of care. Pertinent ROS: Denies headache, dizziness Denies chest pain, palpitations Denies cough or shortness of breath Denies abdominal pain, nausea or vomiting. leg pains present, chr chr back pain present. - Constitutional Vitals: Vital Signs Temp Pulse Resp BP Pulse Ox 97.1 F 77 17 91/54 100 04/06/18 08:00 04/05/18 21:10 04/06/18 08:38 04/06/18 08:38 04/06/18 04:44 Period Temp Pulse Resp BP Sys/Tolbert Pulse Ox Last 24 Hr 96.2 F-98.8 F 59-77 11-28 91-130/48-78 95-100 Intake and Output 04/05/18 04/06/18 04/06/18 21:59 05:59 13:59 Intake Total 132 / 132 931 / 931 Output Total 925 / 925 250 / 250 Balance -793 / -793 681 / 681 Weight 131 lb Intake & Output: Intake & Output 04/05/18 04/06/18 04/06/18 21:59 05:59 13:59 Intake Total 132 / 132 931 / 931 Output Total 925 / 925 250 / 250 Balance -793 / -793 681 / 681 Weight 131 lb Intake: IV 931 / 931 Dextrose 5%-1/2Ns IV Solution 1 931 / 931 ,000 ml @ 50 mls/hr IV .Q20H [facility] Rx#:[id number] Vasostrict 10 Unit In Dextrose 32 / 32 5% in Water 50 ml @ As Directed IV .DUR [facility] Rx#:[id number] Oral 100 / 100 Output: Urine Catheter Amount 225 / 225 250 / 250 Hemodialysis UF 700 / 700 Other: Meal snack Percent of Meal Consumed 100% Feeding Ability Total Assistance Stool Size Smear Stool Color Brown Stool Consistency Soft # of times incontinent of 1 Bowels Exam: Constitutional; Afebrile, cooperative, alert, not in distress. frail malnourished, bed bound. soft voice. Eyes- No icterus, , No periorbital swelling Ears- Ext ear normal, hearing normal to conversation. Neck- Midline trachea, supple Respiratory system: Air Entry equal on both sides, No crackles or wheezing, no rhonchi. CVS- Rate rhythm regular, S1,S2 heard, no gallop, no rub. 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, able to move upper extremities but very weak 2-3/5 Medical - PN: Obj Da - Labs CBC & Chem 7: 04/05/18 08:52 04/06/18 03:55 Labs: Abnormal Lab Results 04/06/18 04/05/18 04/05/18 03:55 08:52 08:52 RBC 3.46 L Hgb 11.4 L Hct 34.5 L POC Hct RDW 15.9 H Gran % 81.0 H Lymph % (Auto) 10.2 L Lymph # (Auto) 0.6 L POC PT POC INR APTT POC Chloride Chloride 93 L 93 L POC Total CO2 POC BUN BUN 44 H Creatinine 1.5 H 2.2 H POC Creatinine Uric Acid 1.4 L 2.0 L POC WB Ioniz Calcium Phosphorus 2.4 L Direct Bilirubin 0.4 H Alkaline Phosphatase Troponin T Albumin 3.0 L Albumin/Globulin Ratio 0.9 L 0.9 L Urine Protein Urine Occult Blood Ur Leukocyte Esterase Urine RBC Urine WBC Hyaline Casts 04/04/18 04/04/18 04/04/18 10:55 10:00 10:00 RBC Hgb Hct POC Hct 35.0 L RDW Gran % Lymph % (Auto) Lymph # (Auto) POC PT POC INR APTT POC Chloride 93 L Chloride 93 L POC Total CO2 31 H POC BUN 55 H BUN 60 H Creatinine 3.5 H POC Creatinine 3.8 H Uric Acid POC WB Ioniz Calcium 1.11 L Phosphorus Direct Bilirubin Alkaline Phosphatase 118 H Troponin T 0.18 H* Albumin 3.0 L Albumin/Globulin Ratio 0.8 L Urine Protein 100 A Urine Occult Blood 0.03 A Ur Leukocyte Esterase 25 A Urine RBC 8 H Urine WBC 44 H Hyaline Casts 7 H 04/04/18 04/04/18 10:00 10:00 RBC 3.48 L Hgb 11.3 L Hct 34.0 L POC Hct RDW 16.2 H Gran % 84.7 H Lymph % (Auto) 7.0 L Lymph # (Auto) 0.5 L POC PT 15.2 H POC INR 1.3 H APTT 43 H POC Chloride Chloride POC Total CO2 POC BUN BUN Creatinine POC Creatinine Uric Acid POC WB Ioniz Calcium Phosphorus Direct Bilirubin Alkaline Phosphatase Troponin T Albumin Albumin/Globulin Ratio Urine Protein Urine Occult Blood Ur Leukocyte Esterase Urine RBC Urine WBC Hyaline Casts Meds: Medications Acetaminophen (Tylenol) 650 mg PO Q4-6HP PRN PRN Reason: PAIN/FEVER > 101 Last Admin: 04/05/18 21:13 Dose: 650 mg Allopurinol (Zylopriim) 150 mg PO DAILY [facility] Last Admin: 04/05/18 10:54 Dose: 150 mg Aspirin (Aspirin) 162 mg PO DAILY [facility] Last Admin: 04/05/18 10:54 Dose: 162 mg Carvedilol (Coreg) 3.125 mg PO QHS [facility] Last Admin: 04/05/18 21:12 Dose: Not Given Cinacalcet (Sensipar) 60 mg PO Q48H [facility] Last Admin: 04/05/18 10:54 Dose: 60 mg Heparin Sodium (Porcine) (Heparin) 5,000 unit SQ Q12 [facility] Last Admin: 04/05/18 21:12 Dose: 5,000 unit Dextrose/Sodium Chloride (Dextrose 5%-1/2ns Iv Solution) 1,000 mls @ 50 mls/hr IV .Q20H [facility] Last Admin: 04/06/18 05:34 Dose: 50 mls/hr Sodium Chloride (Sodium Chloride 0.9%) 250 mls @ 20 mls/hr IV .[id number] [facility] Last Admin: 04/06/18 04:51 Dose: Not Given Vasopressin 10 unit/ Dextrose 50.5 mls @ 0 mls/hr IV .DUR [facility]; As Directed PRN Reason: Protocol Last Infusion: 04/05/18 21:30 Dose: 0 mls/hr Piperacillin Sod/Tazobactam (Sod 2.25 gm/ Dextrose) 50 mls @ 100 mls/hr IV Q8H [facility] Omeprazole (Prilosec) 20 mg PO BIDAC [facility] Last Admin: 04/06/18 06:50 Dose: 20 mg Senna (Senokot) 1 tab PO HS [facility] Last Admin: 04/05/18 21:12 Dose: Not Given Sodium Chloride (Saline Flush) 10 ml IV Q8 [facility] Last Admin: 04/06/18 04:52 Dose: Not Given Medical - PN: A/P - Time Spent With Patient Total time spent is greater than 50% in coordination of care (as documented) at patient's floor/unit and/or counseling patient: - Narrative A/P Narrative: A/P Altered Mental status Encephalopathy secondary to medicatinos Atrial fibrillation with slow RVR Coronary ARtery disease Peripheral Vascular disease 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 Wound care help appreciated. DVT hep sq Renal diet Full code Medical - PN: Qual - Stroke Symptom Onset Unknown: No - VTE Deep Vein Thrombosis/Pulmonary Embolism Present on Admission: No
[2018-04-06] MEDS: ASPIRIN 81 MG TAB.CHEW PO SCH (14:36)
[2018-04-06] MEDS: ALLOPURINOL 300 MG TABLET PO SCH (14:36)
[2018-04-06] MEDS: HEPARIN 5,000 UNIT/ML VIAL SQ SCH (14:37)
[2018-04-06] MEDS: PIPERACILLIN SODIUM/TAZOBACTAM 2.25 GM in DEXTROSE 5% IN WATER 50 ML IV SCH ×2 (14:37→20:22)
[2018-04-06] MEDS ORDERED: LACTOPEROXI/GLUC OXID/POT THIO 1 EACH GEL..EA. TOPICAL PRN (16:09)
[2018-04-06] MEDS ORDERED: ONDANSETRON ODT 4 MG TABLET SL PRN (16:09)
[2018-04-06] MEDS ORDERED: morphine 20 MG/ML ORAL.CONC PO PRN (16:09)
[2018-04-06] MEDS ORDERED: ACETAMINOPHEN 325 MG TABLET PO PRN (16:09)
[2018-04-06] MEDS ORDERED: LORazepam 2 MG/ML VIAL IV PRN (16:09)
[2018-04-06] MEDS ORDERED: LORazepam 0.5 MG TABLET PO PRN (16:09)
[2018-04-06] MEDS ORDERED: SENNOSIDES 1 TABLET PO SCH (21:00)
[2018-04-07] MEDS: 0.9 % SODIUM CHLORIDE 10 ML SYRINGE IV SCH ×3 (06:04→08:16)
[2018-04-07] MEDS: OMEPRAZOLE 20 MG CAPSULE PO SCH (08:16)
--- NOTE | 2018-04-07 11:40 | Discharge Summary ---
Medical - DS: Prov Patient information: Note initiated : 04/07/18 at 11:34 am Service Date, if different from initiated Date: [] Patient: Malvin Esquivel 87 y/o M admitted on 04/04/18 for Altered Mentation. Chief Complaint: [] Date of admission: 04/04/18 13:09 Discharge date: 04/07/18 Primary care physician: Junito Titus Consults: 04/04/18 12:24 Consult to Physician [CONS] Stat Comment: Consulting Provider: Troy Sterling Reason For Exam: Physician to Consult 04/05/18 09:26 Consult to Physician [CONS] Routine Comment: multiple, complex wounds. Consulting Provider: John Canales Reason For Exam: Physician to Consult 04/05/18 14:52 Consult to Physician [CONS] Routine Comment: necrotic right lateral foot and Consulting Provider: John Canales Reason For Exam: Physician to Consult Discharging clinician: Stefanie Patricia Medical - DS: Meds - Discharge Medications Prescriptions: DIPHENHYDRamine (PP) [Benadryl Daisha (Pp)] 25 mg PO Q6HP PRN #200 ml PRN Reason: Itching Lactoperoxi/Gluc Oxid/Pot Thio [Biotene] 1 each TOPICAL PRN PRN #60 gel..ea. PRN Reason: Dry Mouth LORazepam [Ativan] 0.5 mg PO Q2HP PRN #100 tab PRN Reason: Anxiety/Sedation morphine SULFATE [Morphine Sulfate] 5 mg PO Q2HP PRN #200 ml PRN Reason: pain/shortness of breath Ondansetron HCl [Zofran ODT] 4 mg SL Q4HP PRN #30 tab PRN Reason: Nausea And Vomiting Active and Home Medications: Home Medications Allopurinol [Zyloprim] 300 mg PO DAILY 11/26/17 [History Confirmed 04/04/18 Last Taken 11/26/17 08:00] Carvedilol [Coreg] 3.125 mg PO QHS 11/26/17 [History Confirmed 04/04/18 Last Taken 11/25/17 20:00] Cinacalcet HCl [Sensipar] 60 mg PO .EVERY OTHER DAY 11/26/17 [History Confirmed 04/04/18 Last Taken Unknown] Gabapentin [Neurontin] 100 mg PO QHS 11/26/17 [History Confirmed 04/04/18 Last Taken 11/25/17 20:00] Omeprazole [Prilosec] 20 mg PO BIDAC 11/26/17 [History Confirmed 04/04/18 Last Taken 11/26/17 08:00] Pramipexole [Mirapex] 0.5 mg PO HS 11/26/17 [History Confirmed 04/04/18 Last Taken 11/25/17 20:00] traZODone HCL [Desyrel] 150 mg PO HS 11/26/17 [History Confirmed 04/04/18 Last Taken Unknown] Sennosides [Senna] 8.6 mg PO HS #30 tab 11/29/17 [Rx Confirmed 04/04/18 Last Taken Unknown] Baclofen [Lioresal] 10 mg PO BID 04/04/18 [History Confirmed 04/04/18 Last Taken Unknown] Cyclobenzaprine [Flexeril] 5 mg PO TID 04/04/18 [History Confirmed 04/04/18 Last Taken Unknown] Vol-Care Rx Tablet 1 tab DAILY 04/04/18 [History Confirmed 04/04/18 Last Taken Unknown] Medical - DS: Hosp Hospital course: Mr. Esquivel is a 87 year old M [facility] with complaint of increased weakness for the past several days according to the nursing staff. they noticed s/sx yesterday. States he always has some weakness in his right hand. His family is here with him and states that that is true. Also does have a history of A. fib but is off blood thinners as he has had episodes of epistaxis and GI bleeds was admitted for these November. pt is a dialysis patient is scheduled for dialysis later today output but will need in patient orders if admitted here. He woke up this morning with more symptoms did have some slurring of speech and some right-sided facial weakness. He denies any tingling to his upper and lower extremities hand grasp appear to be equal bilaterally however. He is oriented to where he is at his date who people are in the room. Appears the signs and symptoms have been present for greater than [address] [place] Vera was concerned pt had a stroke but out of therapeutic window and also pt has elevated troponin. He was planning transfer to outside facility but had also had consensus with teleneurology that thrombolytics for acute stroke not indicated. Troponin 0.13 and not likely to represent acute NE. Patient was admitted to the hospital for conservative management. The patient mental condition improved after hemodialysis, but was still having intermittent confusion. It was thought that the patients confusion was secondary to the patient being on baclofen and cyclobenazarprine. The patient Head CT was neg for acute CVA, but did have some sinusitis. The patient overall medical condition has been declining over the last few months, he is bed bound, and does not ambulate, he has no lower limb strength, he has vascular ulcers developing in the toes, he has chr back pain. The patient has spinal stenosis and is not a candidate for surgery. He is on hemodialysis, but event transporting him to and back from dialysis has become difficult and patient is unable to even sit up straight and needs to use seatbelts to maintain his posture. Overall he has very poor quality of life. he has extensive vascular disease. I had a family conference with the 2 sons and the daughter, the GHASSAN Penny and the brother and sister were explained the patients overall condition, they noted that this is not the life their father would have wanted to live. He just wanted to be comfortable. They understand the risk of transporting the patient for dialysis is also become risky. They decided to opt for comfort care measures / Palliative care measures and stop all non essential medications. I agree with the plan. 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 I wanted to get hospice involved, however the family is not keen on having them involved. Will be discharging patient back to [facility] facility for palliative care. Discharge diagnosis: Altered Mental status, End stage renal disease - Time Spent with Patient Total time spent providing and/or coordinating discharge services: Less than 30 minutes Medical - DS: Exam - Constitutional Vitals: Vital Signs Temp Pulse Pulse Pulse Resp BP BP 04/07/18 07:12 97 F 52 L 16 106/52 04/06/18 21:49 98.4 F 63 20 109/64 04/06/18 20:18 98.8 F 74 14 112/66 04/06/18 16:51 22 04/06/18 16:16 22 103/53 04/06/18 16:01 20 106/49 04/06/18 15:46 16 101/57 06/13/18 15:31 24 H 114/64 04/06/18 15:16 19 117/52 04/06/18 15:08 14 109/55 04/06/18 14:31 26 H 110/54 04/06/18 14:16 108/61 04/06/18 14:05 98.6 F 73 111/59 04/06/18 14:01 27 H 111/59 04/06/18 13:59 25 H 04/06/18 13:50 72 104/57 04/06/18 13:46 19 104/57 04/06/18 13:35 70 105/63 04/06/18 13:31 19 105/63 04/06/18 13:20 68 103/53 04/06/18 13:16 21 103/53 04/06/18 13:05 77 107/64 04/06/18 13:01 15 107/64 04/06/18 12:50 75 116/53 04/06/18 12:46 24 H 113/66 04/06/18 12:35 75 113/66 04/06/18 12:31 23 H 116/58 04/06/18 12:20 74 116/63 04/06/18 12:16 26 H 116/63 04/06/18 12:05 76 115/60 04/06/18 12:01 25 H 115/60 04/06/18 11:50 69 113/78 04/06/18 11:46 23 H 113/48 04/06/18 11:35 70 111/59 Pulse Ox 04/07/18 07:12 90 04/06/18 21:49 94 04/06/18 20:18 98 04/06/18 16:51 04/06/18 16:16 04/06/18 16:01 04/06/18 15:46 04/06/18 15:31 04/06/18 15:16 04/06/18 15:08 04/06/18 14:31 04/06/18 14:16 04/06/18 14:05 04/06/18 14:01 04/06/18 13:59 04/06/18 13:50 04/06/18 13:46 04/06/18 13:35 04/06/18 13:31 04/06/18 13:20 04/06/18 13:16 04/06/18 13:05 04/06/18 13:01 04/06/18 12:50 04/06/18 12:46 04/06/18 12:35 04/06/18 12:31 04/06/18 12:20 04/06/18 12:16 04/06/18 12:05 04/06/18 12:01 04/06/18 11:50 04/06/18 11:46 04/06/18 11:35 Intake and Output 04/06/18 04/07/18 04/07/18 21:59 05:59 13:59 Intake Total 578 / 578 Output Total 850 / 850 50 / 50 Balance -272 / -272 -50 / -50 Intake: IV 578 / 578 Dextrose 5%-1/2Ns IV Solution 1 528 / 528 ,000 ml @ 50 mls/hr IV .Q20H [facility] Rx#:[id number] Zosyn 2.25 gm In Dextrose 5% in 50 / 50 Water 50 ml @ 100 mls/hr IV Q8H [facility] Rx#:[id number] Output: Urine Catheter Amount 250 / 250 50 / 50 Hemodialysis UF 600 / 600 Other: Meal Dinner Breakfast Percent of Meal Consumed 50% 25% Feeding Ability Total Assistance Additional comments: Constitutional; Afebrile, cooperative, alert, not in distress. Eyes- No icterus, , No periorbital swelling Ears- Ext ear normal, hearing normal to conversation. Neck- Midline trachea, supple Respiratory system: Air Entry equal on both sides, No crackles or wheezing, no rhonchi. 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 Patient is being transitioned to comfort care/ palliative care status. He will stop dialysis. Use morphine and ativan every 2 hrs as needed for pain, anxiety, Other Amb Orders: Wound Care Instructions Location: Determined By Patient - Follow up Plan Follow up with: Junito Titus MD [Primary Care Provider] - Disposition: Home Health Service Prognosis: Undetermined Rehab Potential: Undetermined I certify that the patient requires SNF services: No Overall status at discharge: patient is not back to baseline Medical - DS: Qual - VTE Deep Vein Thrombosis/Pulmonary Embolism Present on Admission: No
--- NOTE | 2018-04-07 16:33 | Nephrology Progress Note ---
Subjective Patient information: Note initiated : 04/07/18 at 4:30 pm Service Date, if different from initiated Date: [] Patient: Malvin Esquivel 87 y/o M admitted on 04/04/18 for Altered Mentation. Chief Complaint: [More alert. I came in to say Hi, he indicated to me that he wants to continue on dialysis. I had Dorina the social studies department chair confirm the same. He has problems with transportation. We will have to work out the details of that. ] Objective - Vital Signs Vital signs: Vital Signs Temp Pulse Pulse Pulse Resp BP BP 04/07/18 13:40 97 F 63 16 106/52 04/07/18 07:12 97 F 52 L 16 106/52 04/06/18 21:49 98.4 F 63 20 109/64 04/06/18 20:18 98.8 F 74 14 112/66 04/06/18 16:51 22 Pulse Ox 04/07/18 13:40 90 04/07/18 07:12 90 04/06/18 21:49 94 04/06/18 20:18 98 04/06/18 16:51 Intake and Output 04/07/18 04/07/18 04/07/18 05:59 13:59 21:59 Intake Total 250 / 250 Output Total 50 / 50 95 / 95 Balance -50 / -50 155 / 155 Intake: Oral 250 / 250 Output: Urine Catheter Amount 50 / 50 95 / 95 Other: Meal Lunch Percent of Meal Consumed 75% Feeding Ability Total Assistance Intake & Output: Intake & Output 04/07/18 04/07/18 04/07/18 05:59 13:59 21:59 Intake Total 250 / 250 Output Total 50 / 50 95 / 95 Balance -50 / -50 155 / 155 Intake: Oral 250 / 250 Output: Urine Catheter Amount 50 / 50 95 / 95 Other: Meal Lunch Percent of Meal Consumed 75% Feeding Ability Total Assistance - General Appearance General appearance: cachectic EENT: mucous membranes dry Neck: no JVD Cardiology: holosystolic murmur Gastrointestinal: normoactive bowel sounds Integumentary: no rash - Lab 04/05/18 08:52 04/06/18 03:55 Most recent lab results Calcium 9.2 mg/dl (8.6-10.4) 04/06/18 03:55 Phosphorus 2.4 mg/dL (2.7-4.5) L 04/06/18 03:55 Magnesium 1.9 mg/dL (1.6-2.5) 04/06/18 03:55 Assessment and Plan (1) End stage renal disease Status: Chronic Comment: He wants to be palliative care but wants to continue dialysis. Will continue the same for now. I agree with the staff with respect to him being on palliative care as well and discontinue dialysis, but patient is insistant on it. In view of the fact that his life expectancy is in the matter of weeks, I think we can continue for now until patient decides to stop. I spoke with son, Dr. Patricia and Suly. Minimize all pain meds/sedatives. Hx of GI bleed, so I will not use NSAIDs. Lesions in his feet, look like target lesions with low blood flow.
== END 2018-04-07 13:20 | DRG 91 ==
LOC: ED 09:26 → ICU 13:09 → MEDSUR 04-06 21:37
PROVIDERS: ADMIT Internal Medicine; ATTEND Internal Medicine